=== PATIENT | female | born 1935 | race American Indian/Alaskan Native ===

== ENCOUNTER 2016-12-27 11:26 | Inpatient (IN) | payer MEDICARE ==
[2016-12-27] MEDS ORDERED: Sodium Chloride 0.9% 1,000 ML IV ONE (12:37)
--- NOTE | 2016-12-27 12:40 | C.PDOC ---
History Of Present Illness 81 yr old F had 2 near syncopal episodes, one 2 days ago and one around 9 am. Pt got up from the bed to answer a phone call, when hung up felt dizzy and collapsed to the floor, states that remembers everything including the fall. Pt denies chest pain, sob, n/v/d, abdominal pain. Pt's family report that pt is not compliant with her medications and does not take any. Denies weakness or numbness. Time Seen by Provider: 12/27/16 12:18 Chief Complaint (Nursing): Dizziness/Lightheaded History Per: Patient, Family History/Exam Limitations: clinical condition Onset/Duration Of Symptoms: Intermittent Episodes Current Symptoms Are (Timing): Still Present Activity At Onset Of Symptoms: Standing Associated Symptoms Preceding Syncopal Episode: Lightheadedness Severity: Mild Pain Scale Rating Of: 3 Recent travel outside of the [place]: No Past Medical History Reviewed: Historical Data, Nursing Documentation, Vital Signs Vital Signs: Last Vital Signs Temp 98.0 F 12/27/16 14:49 Pulse 78 12/27/16 15:03 Resp 18 12/27/16 15:03 BP 137/59 L 12/27/16 16:08 Pulse Ox 99 12/27/16 18:02 - Medical History PMH: HTN, Hypercholesterolemia, Parkinson's Disease Family History: States: Unknown Family Hx - Social History Hx Alcohol Use: Yes Hx Substance Use: No - Immunization History Hx Influenza Vaccination: Yes Hx Pneumococcal Vaccination: Yes Review Of Systems Except As Marked, All Systems Reviewed And Found Negative. Constitutional: Negative for: Fever, Chills, Sweats Cardiovascular: Positive for: Light Headedness. Negative for: Chest Pain Respiratory: Negative for: Shortness of Breath Gastrointestinal: Negative for: Nausea, Vomiting Genitourinary: Negative for: Dysuria Musculoskeletal: Positive for: Shoulder Pain (right) Neurological: Negative for: Other (loss of consciousness) Physical Exam - Physical Exam Appears: Non-toxic, No Acute Distress Skin: Normal Color, Warm, Dry Head: Atraumatic, Normacephalic Eye(s): bilateral: Normal Inspection Ear(s): Bilateral: Normal Nose: Normal Lips: Normal Appearing Neck: Normal, Normal ROM Lymphatic: Normal Exam Chest: Symmetrical Cardiovascular: Rhythm Regular Respiratory: Normal Breath Sounds, No Rales, No Rhonchi, No Wheezing Gastrointestinal/Abdominal: Normal Exam, Soft, No Tenderness Back: Normal Inspection Neurological/Psych: Oriented x3, Normal Speech, Normal Motor, Normal Sensation, Other (tremors of right arm noted) ED Course And Treatment - Laboratory Results Result Diagrams: 12/27/16 13:05 12/27/16 13:05 Lab Interpretation: Abnormal ((+)troponin, leukocytopenia) ECG: Interpreted By Me ECG Rhythm: Sinus Rhythm, ST/T Changes ECG Interpretation: Abnormal (Lest axis deviation, ST&T abnormality) Rate From EC O2 Sat by Pulse Oximetry: 99 (room air) Pulse Ox Interpretation: Normal - Radiology CXR: Interpreted by Me, Read By Radiologist CXR Interpretation: Yes: No Acute Disease Progress Note: Plan: EKG, Labs, Chest x-ray, IV fluids, Right shoulder x-ray Reassessment Condition: Unchanged Medical Decision Making Medical Decision Makin:[address] Sosa called, no answering service, called cell, mail box is full. 2:00 pm Called cell phone, mail box full, sent a text msg to call me from my cell. 2:20 pm Called cell phone, mail box full 2:30 PM ICU rehabilitation inspector Dr. Wall called, case discussed, Dr. Wall states that at this time the pt does not meet admission criteria for ICU. 2:40 pm Called cell phone, mail box full 2:[address] Stevens Called, case discussed, accepted the pt. Disposition Counseled Patient/Family Regarding: Studies Performed, Diagnosis - Disposition Disposition: HOSPITALIZED Disposition Time: 15:00 Condition: STABLE - POA Present On Arrival: Falls Or Trauma - Clinical Impression Clinical Impression: Myocardial infarct, Near syncope, Orthostatic hypotension - PA / ESTHETICIAN AND MANAGER [employer] / Resident Statement MD/DO has reviewed & agrees with the documentation as recorded. - Scribe Statement The provider has reviewed the documentation as recorded by the Scribe Olivia Stevens All medical record entries made by the Scribe were at my direction and personally dictated by me. I have reviewed the chart and agree that the record accurately reflects my personal performance of the history, physical exam, medical decision making, and the department course for this patient. I have also personally directed, reviewed, and agree with the discharge instructions and disposition. Decision To Admit - Pt Status Changed To: Hospital Disposition Of: Inpatient - Admit Certification Admit to Inpatient:: After my assessment, the patient will require hospitalization for at least two midnights. This is because of the severity of symptoms shown, intensity of services needed, and/or the medical risk in this patient being treated as an outpatient. - InPatient: Physician Admission Certification: I certify that this patient requires 2 or more midnights of care for the following reason:: see notes - . Bed Request Type: Telemetry Admitting Physician: Silvio Stevens Patient Diagnosis: Myocardial infarct, Near syncope, Orthostatic hypotension
[2016-12-27] MEDS ORDERED: Sodium Chloride 0.9% 1,000 ML ONE ×2 (13:05→16:03)
[2016-12-27 13:13] LABS: BASO % 0.6 % (0.0-2.0); EOS % 0.1 % (0.0-4.0); HEMATOCRIT 45.9 % (34.0-47.0); LYMPH # 0.8 K/uL (1.0-4.3); LYMPH % 18.5 % (20.0-40.0); MEAN CELL VOLUME 101.6 fL (81.0-99.0); MEAN CORPUSCULAR HEMOGLOBIN 33.6 pg (27.0-31.0); MEAN CORPUSCULAR HGB CONC 33.1 g/dL (33.0-37.0); MEAN PLATELET VOLUME 9.4 fL (7.2-11.7); MONO # 0.4 K/uL (0.0-0.8); MONO % 8.6 % (0.0-10.0); NRBC % 0.1 % (0.0-2.0); RED CELL DISTRIBUTION WIDTH 13.7 % (11.5-14.5); WHITE BLOOD COUNT 4.4 K/uL (4.8-10.8)
[2016-12-27 13:22] LABS: CHLORIDE 103 mmol/L (98-107); POTASSIUM 4.3 mmol/L (3.6-5.2); SODIUM 142 mmol/L (132-148)
[2016-12-27 13:24] LABS: GFR AFRICAN-AMERICAN > 60
[2016-12-27 13:25] LABS: ALKALINE PHOSPHATASE 61 U/L (38-126); ALT/SGPT 17 U/L (9-52); AST/SGOT 26 U/L (14-36); BILIRUBIN,TOTAL 1.2 mg/dL (0.2-1.3); BLOOD UREA NITROGEN 14 mg/dL (7-17); CALCIUM 9.3 mg/dl (8.6-10.4); CARBON DIOXIDE 27 mmol/L (22-30); GLUCOSE,RANDOM 108 mg/dL (65-105); TOTAL PROTEIN 7.6 g/dL (6.3-8.3)
--- NOTE | 2016-12-27 13:38 | RAD ---
PROCEDURE: Radiographs of the Right Shoulder HISTORY: PAIN Posttraumatic pain. COMPARISON: No prior. FINDINGS: BONES: No acute fracture or evidence of dislocation. JOINTS: Moderate -severe acromioclavicular and glenohumeral degenerative change. SOFT TISSUES: Normal. OTHER FINDINGS: None. IMPRESSION: No acute findings related to/accounting for the clinical presentation.
--- NOTE | 2016-12-27 13:39 | RAD ---
PROCEDURE: CHEST RADIOGRAPH, 1 VIEW. Semi erect study 12:40. HISTORY: SYNCOPE COMPARISON: None available. FINDINGS: LUNGS: Clear. PLEURA: No pneumothorax or pleural fluid seen. CARDIOVASCULAR: No radiographic findings to suggest acute or significant cardiovascular disease. OSSEOUS STRUCTURES: No acute fractures. A symmetrical degenerative changes both shoulders right greater than left. VISUALIZED UPPER ABDOMEN: Normal. OTHER FINDINGS: None. IMPRESSION: No active disease.
[2016-12-27 15:09] LABS: RBC URINE 1 /hpf (0-3); URINE BACTERIA OCC (<OCC); URINE BILIRUBIN NEGATIVE (NEGATIVE); URINE BLOOD 1+ (NEGATIVE); URINE COLOR Yellow (YELLOW); URINE GLUCOSE (UA) NORMAL (Normal); URINE KETONE NEGATIVE (NEGATIVE); URINE LEUKOCYTE ESTERASE NEG Leu/uL (Negative); URINE PROTEIN NEGATIVE (NEGATIVE); URINE UROBILINOGEN NORMAL mg/dL (0.2-1.0); WBC URINE 3 /hpf (0-5)
[2016-12-27] MEDS ORDERED: Enoxaparin 40 mg Syringe SC STA (15:13)
[2016-12-27] MEDS: Sodium Chloride 0.9% 1,000 ML IV SCH (16:08)
--- NOTE | 2016-12-27 16:37 | CT ---
PROCEDURE: CT HEAD WITHOUT CONTRAST. HISTORY: syncope COMPARISON: None available. TECHNIQUE: Axial computed tomography images were obtained through the head/brain without intravenous contrast. Coronal and sagittal reconstructed images. Radiation dose: Total exam DLP = 817.06 mGy-cm. This CT exam was performed using one or more of the following dose reduction techniques: Automated exposure control, adjustment of the mA and/or kV according to patient size, and/or use of iterative reconstruction technique. FINDINGS: HEMORRHAGE: No intracranial hemorrhage. BRAIN: No mass effect or edema. Age related senescent change VENTRICLES: Unremarkable. No hydrocephalus. CALVARIUM: Unremarkable. PARANASAL SINUSES: Unremarkable as visualized. No significant inflammatory changes. MASTOID AIR CELLS: Unremarkable as visualized. No inflammatory changes. OTHER FINDINGS: None. IMPRESSION: No acute intracranial abnormalities. No significant findings to account for the clinical presentation.
[2016-12-27 17:09] LABS: INR 1.3
--- NOTE | 2016-12-27 20:22 | CP.PCM.HP ---
History of Present Illness - History of Present Illness History of Present Illness: This 81 years ld female claims she felt very dizzy 2 days prior to admissin darwin fell on her knees. She claims she did not loss consciousness. She was able to get up immediately. Yester day she felt dizzy n and off. This morning darwin got up to answer her phone and she got dizzy again but id not loss consciousness. because of this she was brought to the RE by her daughter. In the ER the troponin level was elevated but the EKG did not show an acute pattern. Present on Admission - Present on Admission Any Indicators Present on Admission: No Review of Systems - Review of Systems Systems not reviewed;Unavailable: Acuity of Condition - Constitutional Constitutional: Frequent Falls - Cardiovascular Cardiovascular: Lightheadedness - Reproductive: Female Reproductive:Female: Post Menopausal - Musculoskeletal Musculoskeletal: Abnormal Gait - Neurological Neurological: Abnormal Gait, Abnormal Movements, Dizziness, Vertigo Past Patient History - Past Medical History & Family History Past Medical History?: Yes - Past Social History Smoking Status: Never Smoked Chewing Tobacco Use: No Cigar Use: No Alcohol: Social Drugs: Denies Home Situation {Lives}: Alone Domestic Violence: Negative - CARDIAC Hx Hypercholesterolemia: Yes Hx Hypertension: Yes - PULMONARY Hx Respiratory Disorders: No - NEUROLOGICAL Hx Neurological Disorder: Yes Hx Parkinson's Disease: Yes Hx Vertigo: Yes - HEENT Hx HEENT Problems: No - RENAL Hx Chronic Kidney Disease: No - ENDOCRINE/METABOLIC Hx Endocrine Disorders: No - HEMATOLOGICAL/ONCOLOGICAL Hx Blood Disorders: No - INTEGUMENTARY Hx Dermatological Problems: No - MUSCULOSKELETAL/RHEUMATOLOGICAL Hx Falls: Yes - GENITOURINARY/GYNECOLOGICAL Hx Genitourinary Disorders: No - PSYCHIATRIC Hx Psychophysiologic Disorder: No Hx Substance Use: No - SURGICAL HISTORY Hx Surgeries: Yes Hx Breast Biopsy: Yes (removal of breast masses as a child) Hx Cholecystectomy: Yes - ANESTHESIA Hx Anesthesia: Yes Hx Anesthesia Reactions: No Has any member of the family had a problem w/ anesthesia?: No Meds Allergies/Adverse Reactions: Allergies Allergy/AdvReac Type Severity Reaction Status Date / Time strawberry Allergy RASH Verified 12/27/16 12:11 seafood Allergy RASH Uncoded 12/27/16 11:42 Physical Exam - Constitutional Appears: Well, Non-toxic, No Acute Distress - Head Exam Head Exam: ATRAUMATIC - Eye Exam Eye Exam: Normal appearance Pupil Exam: NORMAL ACCOMODATION, PERRL - ENT Exam ENT Exam: Mucous Membranes Moist - Neck Exam Neck exam: Positive for: Full Rom, Normal Inspection - Respiratory Exam Respiratory Exam: Clear to Auscultation Bilateral, NORMAL BREATHING PATTERN - Cardiovascular Exam Cardiovascular Exam: REGULAR RHYTHM, +S1, +S2 - GI/Abdominal Exam GI & Abdominal Exam: Normal Bowel Sounds, Soft - Rectal Exam Rectal Exam: Deferred - Extremities Exam Extremities exam: Positive for: full ROM, normal inspection - Back Exam Back exam: FULL ROM, NORMAL INSPECTION - Neurological Exam Neurological exam: Alert, CN II-XII Intact, Oriented x3, Reflexes Normal - Psychiatric Exam Psychiatric exam: Normal Affect, Normal Mood - Skin Skin Exam: Dry, Intact, Normal Color, Warm Results - Vital Signs Recent Vital Signs: Last Vital Signs Temp 98.0 F 12/27/16 14:49 Pulse 78 12/27/16 15:03 Resp 18 12/27/16 15:03 BP 137/59 L 12/27/16 16:08 Pulse Ox 99 12/27/16 18:05 - Labs Result Diagrams: 12/27/16 13:05 12/27/16 13:05 Labs: Laboratory Results - last 24 hr 12/27/16 16:59 PT 14.7 H INR 1.3 APTT 32 Assessment & Plan (1) Vertigo Status: Acute (2) Elevated troponin Status: Acute (3) Hypertension Status: Chronic (4) Hyperlipidemia Status: Chronic (5) Parkinson disease, symptomatic Status: Chronic - Assessment and Plan (Free Text) Assessment: Assessment: Vertigo Elevated troponin Parkinsons Hypertension Hyperlipedemia. Plan: Plan: Continue Telemetry. IV fluids . Continue cardiac enzymes monitoring. ECHO in AM. EEG Carotid doppler. MRI nad MRA of the head.
--- NOTE | 2016-12-28 07:50 | CP.PCM.CON ---
History of Present Illness - History of Present Illness History of Present Illness: I was asked to see patient by Dr. Bowser. Patient is a 81 year old female with PMH HTN, hypercholesterolemia and Parkinson 's disease who presents with syncope. The patient describes 2 separate episodes of syncope which occurred at home. She suddenly remembers being on the floor. the patient was brought to [facility] after the second syncopal event. The patient ruled in for myocardial infarction. EKG was suggestive of anterolateral ischemia. The patient is currently chest pain free. Review of Systems - Constitutional Constitutional: absent: As Per HPI, Anorexia, Chills, Daytime Sleepiness, Excessive Sweating, Fatigue, Fever, Frequent Falls, Headache, Increased Appetite , Lethargy, Malaise, Night Sweats, Snoring, Sleep Apnea, Weight Gain, Weight Loss, Weakness, Other - EENT Eyes: absent: As Per HPI, Blind Spots, Blurred Vision, Change in Vision, Decreased Night Vision, Diplopia, Discharge, Dry Eye, Exophthalmos, Floaters, Irritation, Itchy Eyes, Loss of Peripheral Vision, Pain, Photophobia, Requires Corrective Lenses, Sees Flashes, Spots in Vision, Tunnel Vision, Other Visual Disturbances, Loss of Vision, Other Ears: absent: As Per HPI, Decreased Hearing, Ear Discharge, Ear Pain, Tinnitus, Abnormal Hearing, Disequilibrium, Dizziness, Other Nose/Mouth/Throat: absent: As Per HPI, Epistaxis, Nasal Congestion, Nasal Discharge, Nasal Obstruction, Nasal Trauma, Nose Pain, Post Nasal Drip, Sinus Pain, Sinus Pressure, Bleeding Gums, Change in Voice, Dental Pain, Dry Mouth, Dysphagia, Halitosis, Hoarsness, Lip Swelling, Mouth Lesions, Mouth Pain, Odynophagia, Sore Throat, Throat Swelling, Tongue Swelling, Facial Pain, Neck Pain, Neck Mass, Other - Cardiovascular Cardiovascular: Syncope - Respiratory Respiratory: absent: As Per HPI, Cough, Dyspnea, Hemoptysis, Dyspnea on Exertion , Wheezing, Snoring, Stridor, Pain on Inspiration, Chest Congestion, Excessive Mucous Production, Change in Mucous Color, Pain with Coughing, Other - Gastrointestinal Gastrointestinal: absent: As Per HPI, Abdominal Pain, Belching, Bloating, Change in Bowel Habits, Change in Stool Character, Coffee Ground Emesis, Constipation, Cramping, Diarrhea, Dyspepsia, Dysphagia, Early Satiety, Excessive Flatus, Fecal Incontinence, Heartburn, Hematemesis, Hematochezia, Loose Stools, Melena, Nausea, Odynophagia, Temesmus, Vomiting, Other - Genitourinary Genitourinary: absent: As Per HPI, Change in Urinary Stream, Difficulty Urinating, Dysuria, Flank Pain, Hematuria, Pyuria, Nocturia, Urinary Incontinence, Urinary Frequency, Urinary Hesitance, Urinary Urgency, Voiding Freq/Small Amts, Freq UTI, Hx Renal/Bladder Calculi, Hx /Renal Surgery, Bladder Distension, Other - Musculoskeletal Musculoskeletal: absent: As Per HPI, Abnormal Gait, Arthralgias, Atrophy, Back Pain, Deformity, Joint Swelling, Limited Range of Motion, Loss of Height, Muscle Cramps, Muscle Weakness, Myalgias, Neck Pain, Numbness, Radiating Pain into Limb, Stiffness, Tingling, Other - Integumentary Integumentary: absent: As Per HPI, Acne, Alopecia, Bleeding Lesions, Change in Hair, Change in Nails, Change in Pigmentation, Changing Lesions, Dry Skin, Erythema, Furuncle, Hirsutism, Lesions, New Lesions, Non-Healing Lesions, Photosensitivity, Pruritus, Rash, Skin Pain, Skin Ulcer, Sores, Striae, Swelling , Unusual Bruising, Wounds, Jaundice, Other - Neurological Neurological: Tremor - Psychiatric Psychiatric: absent: As Per HPI, Abnormal Sleep Pattern, Anhedonia, Anxiety, Auditory Hallucinations, Behavioral Changes, Change in Appetite, Change in Libido, Confusion, Depression, Difficulty Concentrating, Hallucinations, Homicidal Ideation, Hopelessness, Irritability, Memory Loss, Mood Swings, Panic Attacks, Paranoia, Suicidal Ideation, Visual Hallucinations, Tactile Hallucinations, Other - Endocrine Endocrine: absent: As Per HPI, Change in Body Appearance, Change in Libido, Cold Intolorance, Deepening of Voice, Excessive Sweating, Fatigue, Flushing, Heat Intolorance, Increase in Ring/Shoe/Hat Size, Palpitations, Polydipsia, Polyphagia, Polyuria, Other - Hematologic/Lymphatic Hematologic: absent: As Per HPI, Easy Bleeding, Easy Bruising, Lymphadenopathy, Other Past Patient History - Past Medical History & Family History Past Medical History?: Yes - Past Social History Smoking Status: Never Smoked - CARDIAC Hx Hypercholesterolemia: Yes Hx Hypertension: Yes - PULMONARY Hx Respiratory Disorders: No - NEUROLOGICAL Hx Neurological Disorder: Yes Hx Parkinson's Disease: Yes Hx Vertigo: Yes - HEENT Hx HEENT Problems: No - RENAL Hx Chronic Kidney Disease: No - ENDOCRINE/METABOLIC Hx Endocrine Disorders: No - HEMATOLOGICAL/ONCOLOGICAL Hx Blood Disorders: No - INTEGUMENTARY Hx Dermatological Problems: No - MUSCULOSKELETAL/RHEUMATOLOGICAL Hx Falls: Yes - GENITOURINARY/GYNECOLOGICAL Hx Genitourinary Disorders: No - PSYCHIATRIC Hx Substance Use: No - SURGICAL HISTORY Hx Surgeries: Yes Hx Breast Biopsy: Yes (removal of breast masses as a child) Hx Cholecystectomy: Yes - ANESTHESIA Hx Anesthesia: Yes Hx Anesthesia Reactions: No Has any member of the family had a problem w/ anesthesia?: No Meds Allergies/Adverse Reactions: Allergies Allergy/AdvReac Type Severity Reaction Status Date / Time strawberry Allergy RASH Verified 12/27/16 12:11 seafood Allergy RASH Uncoded 12/27/16 11:42 - Medications Medications: Current Medications Aspirin (Aspirin) 325 mg PO DAILY [facility] Enoxaparin Sodium (Lovenox) 40 mg SC DAILY [facility] Sodium Chloride (Sodium Chloride 0.9%) 1,000 mls @ 50 mls/hr IV .Q20H [facility] Last Admin: 12/27/16 16:08 Dose: 50 mls/hr Lisinopril (Zestril) 10 mg PO DAILY [facility] Pantoprazole Sodium (Protonix Ec Tab) 40 mg PO DAILY [facility] Rosuvastatin Calcium (Crestor) 5 mg PO DAILY [facility] Physical Exam - Constitutional Appears: Non-toxic - Head Exam Head Exam: NORMAL INSPECTION - Eye Exam Eye Exam: Normal appearance - ENT Exam ENT Exam: Mucous Membranes Moist - Neck Exam Neck exam: Positive for: Full Rom - Respiratory Exam Respiratory Exam: NORMAL BREATHING PATTERN - Cardiovascular Exam Cardiovascular Exam: REGULAR RHYTHM - GI/Abdominal Exam GI & Abdominal Exam: Bruit - Rectal Exam Rectal Exam: Deferred - Extremities Exam Extremities exam: Negative for: pedal edema - Back Exam Back exam: NORMAL INSPECTION - Neurological Exam Neurological exam: Alert, Oriented x3 - Psychiatric Exam Psychiatric exam: Normal Affect - Skin Skin Exam: Normal Color Results - Vital Signs Recent Vital Signs: Last Vital Signs Temp 98.0 F 12/27/16 14:49 Pulse 74 12/27/16 23:10 Resp 16 12/27/16 23:10 BP 131/69 12/27/16 22:36 Pulse Ox 100 12/27/16 23:10 - Labs Result Diagrams: 12/27/16 13:05 12/27/16 13:05 Labs: Laboratory Results - last 24 hr 12/27/16 12/27/16 16:59 21:52 PT 14.7 H INR 1.3 APTT 32 Total Creatine Kinase 43 CK-MB (Mass) < 0.22 Troponin I, Quant 0.1790 H* - EKG Data EKG Interpreted by: Myself EKG shows normal: Sinus rhythm Assessment & Plan (1) Syncope Assessment and Plan: patient's symptoms may be due to arrhythmia. recommend telemetry monitoring. Status: Acute (2) Acute non-ST segment elevation myocardial infarction Assessment and Plan: abnormal EKG. recommend cardaic catheterization. Discussed with patient. I will need to discuss with the patient's daughter. Status: Acute (3) Hyperlipidemia Assessment and Plan: statin therapy. check fasting lipid profile. Status: Chronic (4) Hypertension Assessment and Plan: blood pressure contorl. Status: Chronic
[2016-12-28] MEDS: Sodium Chloride 0.9% 1,000 ML IV SCH ×2 (09:26→11:56)
[2016-12-28] MEDS: Pantoprazole 40 mg EC Tab PO SCH (09:26)
[2016-12-28] MEDS: Enoxaparin 40 mg Syringe SC SCH (11:00)
--- NOTE | 2016-12-28 11:21 | EEG ---
DATE: 12/28/2016 EEG REPORT INTRODUCTION: This is a digitally recorded EEG monitoring using standard EEG montages. BACKGROUND RHYTHM: The EEG shows a background activity of 8-9 Hz alpha activity in parietooccipital region. The EEG activity is bilaterally symmetrical and synchronous. There is attenuation of the ba ckground activity on eye opening. No sleep recording was noted. ABNORMAL POTENTIALS: No spikes, sharp waves, or focal slowing was seen. PHOTIC STIMULATION AND HYPERVENTILATION: Photic stimulation did not reveal any abnormality. Hyperve ntilation was not performed. IMPRESSION: Normal EEG. No epileptiform activity is seen in this EEG recording. Yeni Penaloza MD cc: [id number] TT: 12/28/2016 11:20:36 Confirmation # [id number] Dictation # [id number] jn
--- NOTE | 2016-12-28 11:43 | CON ---
DATE: 12/28/2016 REASON FOR CONSULTATION: Episode of almost passing out. HISTORY OF PRESENTING ILLNESS: The patient is an 81-year-old female who has been asked for evaluatio n of episode of almost passing out. The patient apparently was feeling dizzy, got up from bed to ans wer a phone call, when hung up felt dizzy and collapsed to the floor. She said she did not completel y lose consciousness. She had no focal weakness in arms or legs. She has been having episodes of di zziness over the last few days. Dizziness is described as lightheaded feeling. It is not associated with any loss of vision or focal weakness in arms or legs. She denies any ringing in her ears. REVIEW OF SYSTEMS: Denies any chest pain, shortness of breath, abdominal pain, constipation, diarrhe a, dysuria, pyuria, cough or sputum production. PAST MEDICAL HISTORY: Includes hypertension, hypercholesterolemia and Parkinson disease. MEDICATIONS: At home include lisinopril and pravastatin. At present, patient is on Crestor, aspirin , Lovenox, Protonix and lisinopril. ALLERGIES: SEAFOOD AND STRAWBERRY. SOCIAL HISTORY: Denies smoking, use of alcohol or illicit drugs. FAMILY HISTORY: Reviewed and noncontributory to the case. PHYSICAL EXAMINATION: GENERAL: The patient is an elderly, pleasant female, lying on the bed, in no acute distress. VITAL SIGNS: Her blood pressure is 146/77, heart rate is 95 per minute, breathing at a rate of 16 pe r minute, temperature is 97.1 degrees Fahrenheit. HEENT: Head is normocephalic, atraumatic. NECK: Supple. There are no carotid bruits. LUNGS: Clear. CARDIOVASCULAR: S1, S2 audible. No murmurs. ABDOMEN: Soft and nontender, bowel sounds present. NEUROLOGIC EXAMINATION: MENTAL STATUS: The patient is awake and alert, oriented to time, place, and person. Speech is fluen t. Naming and repetition normal. Memory and cognition are intact. CRANIAL NERVES: Pupils are 3 mm bilaterally, reactive to light. Visual gonzalez are full. Extraocula r movements are intact. There is no facial asymmetry. Palate is upgoing bilaterally and tongue is m idline. MOTOR: Tone shows positive cogwheeling. There is resting tremors noted in both upper extremities an d also in right lower extremity. Power is 5/5 bilaterally in all extremities. Reflexes 1+ and symme trical with absent ankle jerk. Plantars downgoing bilaterally. CEREBELLAR: [id number] shows no dysmetria. GAIT: Deferred at the moment. LABORATORIES: Reviewed, shows WBC of 4.4, hemoglobin of 15.2, hematocrit 45.9 and platelets of 181. INR is 1.3. Sodium 142, potassium 4.3, chloride 103, carbon dioxide 27, BUN of 14, creatinine 1.0 a nd glucose of 108. Her troponin is 0.476. She had a CT scan of the head done, which shows no acute intracranial pathology. IMPRESSION: 1. Near syncope. Rule out seizure versus cardiac arrhythmia. 2. 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 RECOMMENDATIONS: 1. The patient to have MRI of the brain without contrast. 2. The patient also to have carotid Doppler study. 3. The patient to have an electroencephalogram. 4. The patient to have cardiac monitoring to look for any cardiac arrhythmias. 5. The patient will require anti-parkinsonian medication. However, will initiate it as an outpatien t and would not start any anti-parkinsonian medication at present. 6. Once stable, patient to have physical therapy for gait and balance. 7. Please continue other treatment. Thank you for the opportunity to participate in the care of this patient. Yeni Penaloza MD cc: [id number] TT: 12/28/2016 11:42:38 Confirmation # [id number] Dictation # [id number]
--- NOTE | 2016-12-28 11:53 | CP.PCM.PN ---
Subjective - Date & Time of Evaluation Date of Evaluation: 12/28/16 Time of Evaluation: 11:45 - Subjective Subjective: No chest pains.No dizziness. Trponin initaall was 0.64 the most recent is 0.47. Ecg showed ischemic cxhanges at jermaine lateral. wall. Patient to go for cardiac cath. today. Objective - Vital Signs/Intake and Output Vital Signs (last 24 hours): Temp Pulse Resp BP Pulse Ox 97.1 F L 95 H 15 146/77 100 12/28/16 08:00 12/28/16 08:00 12/28/16 08:00 12/28/16 08:00 12/28/16 08:00 Intake and Output: 12/28/16 12/28/16 06:59 18:59 Intake Total 300 Output Total 300 Balance 0 - Medications Medications: Current Medications Aspirin (Aspirin) 325 mg PO DAILY [facility] Last Admin: 12/28/16 09:25 Dose: 325 mg Enoxaparin Sodium (Lovenox) 40 mg SC DAILY [facility] Sodium Chloride (Sodium Chloride 0.9%) 1,000 mls @ 50 mls/hr IV .Q20H [facility] Last Admin: 12/28/16 09:26 Dose: 50 mls/hr Lisinopril (Zestril) 10 mg PO DAILY [facility] Last Admin: 12/28/16 09:25 Dose: 10 mg Pantoprazole Sodium (Protonix Ec Tab) 40 mg PO DAILY [facility] Last Admin: 12/28/16 09:26 Dose: 40 mg Rosuvastatin Calcium (Crestor) 5 mg PO HS [facility] - Labs Labs: PT 14.7 SECONDS (9.7-12.2) H 12/27/16 16:59 INR 1.3 12/27/16 16:59 APTT 32 SECONDS (21-34) 12/27/16 16:59 - Constitutional Appears: Well - Head Exam Head Exam: ATRAUMATIC, NORMAL INSPECTION, NORMOCEPHALIC - Eye Exam Eye Exam: PERRL Pupil Exam: NORMAL ACCOMODATION, PERRL - ENT Exam ENT Exam: Normal External Ear Exam - Neck Exam Neck Exam: Full ROM, Normal Inspection - Respiratory Exam Respiratory Exam: Clear to Ausculation Bilateral, NORMAL BREATHING PATTERN - Cardiovascular Exam Cardiovascular Exam: REGULAR RHYTHM, +S1, +S2 - GI/Abdominal Exam GI & Abdominal Exam: Soft, Normal Bowel Sounds - Rectal Exam Rectal Exam: Deferred - Back Exam Back Exam: Full ROM, NORMAL INSPECTION - Neurological Exam Neurological Exam: Alert, Awake, CN II-XII Intact, Oriented x3 - Psychiatric Exam Psychiatric exam: Normal Affect, Normal Mood - Skin Skin Exam: Dry, Intact, Normal Color, Warm Assessment and Plan (1) Vertigo Status: Acute (2) Elevated troponin Status: Acute (3) Hypertension Status: Chronic (4) Hyperlipidemia Status: Chronic (5) Parkinson disease, symptomatic Status: Chronic - Assessment and Plan (Free Text) Plan: Plan ; For cardiac cath.
--- NOTE | 2016-12-28 16:54 | CARD ---
APPROVED REPORT EXAM: Two-dimensional and M-mode echocardiogram with Doppler and color Doppler. Other Information Quality : GoodRhythm : INDICATION Acute DC Dizziness and Vertigo Syncope ELEVATED TROP. RISK FACTORS Hypertension Hyperlipidemia M-Mode DIMENSIONS RVDd1.48 (2.1-3.2cm)Left Atrium (MM)3.61 (2.5-4.0cm) IVSd0.96 (0.7-1.1cm)Aortic Root3.13 (2.2-3.7cm) LVDd5.16 (4.0-5.6cm)Aortic Cusp Exc.2.03 (1.5-2.0cm) PWd1.00 (0.7-1.1cm)FS (%) 41 % LVDs3.06 (2.0-3.8cm)LVEF (%)71 (>50%) Aortic Valve AoV Peak Dbubboxj532.2cm/Reymundo Peak GR.6mmHg Mitral Valve MV E Rwuxjpwv30.8cm/sMV A Ezpeyhqa76.9cm/sE/A ratio0.6 TDI E/Lateral E'0.0E/Medial E'0.0 Tricuspid Valve TR Peak Kvzhvqva378ku/sRAP [id number] Peak Gr.22mmHg [id number] LEFT VENTRICLE There is normal left ventricular wall thickness. The left ventricular systolic function is normal. The left ventricular ejection fraction is within the normal range. There is normal LV segmental wall motion. Normal left atrial pressure. Transmitral Doppler flow pattern is Grade I-abnormal relaxation pattern. RIGHT VENTRICLE The right ventricle is normal size. There is normal right ventricular wall thickness. The right ventricular systolic function is normal. ATRIA The left atrium size is normal. The right atrium size is normal. AORTIC VALVE The aortic valve is normal in structure. No aortic regurgitation is present. MITRAL VALVE The mitral valve is normal in structure. There is no mitral valve regurgitation noted. TRICUSPID VALVE The tricuspid valve is normal in structure. There is trace to mild tricuspid regurgitation. Right ventricular systolic pressure is estimated at less than 30 mmHg. PULMONIC VALVE The pulmonary valve is normal in structure. There is no pulmonic valvular regurgitation. GREAT VESSELS The aortic root is normal in size. The IVC is normal in size and collapses >50% with inspiration. PERICARDIAL EFFUSION There is no pericardial effusion. <Conclusion> The left ventricular systolic function is normal. There is normal LV segmental wall motion. Normal left atrial pressure. Transmitral Doppler flow pattern is Grade I-abnormal relaxation pattern. The right ventricular systolic function is normal. No valvular abnormality noted. There is no pericardial effusion.
--- NOTE | 2016-12-28 17:23 | CARD ---
APPROVED REPORT EKG Measurement Heart [id number] <Conclusion> Normal sinus rhythm Left axis deviation Minimal voltage criteria for LVH, may be normal variant Nonspecific ST & T wave abnormality. Abnormal ECG PLEASE REPEAT. PROMINENT BASELINE ARTIFACT
--- NOTE | 2016-12-28 18:38 | CP.PCM.PN ---
Subjective - Date & Time of Evaluation Date of Evaluation: 12/28/16 Time of Evaluation: 18:35 - Subjective Subjective: cardiac cath performed. no angiographic evidence of CAD. Normal LV function. Objective - Vital Signs/Intake and Output Vital Signs (last 24 hours): Temp Pulse Resp BP Pulse Ox 97.1 F L 99 H 13 127/72 79 L 12/28/16 16:17 12/28/16 16:17 12/28/16 16:10 12/28/16 14:04 12/28/16 16:10 Intake and Output: 12/28/16 12/28/16 06:59 18:59 Intake Total 300 1100 Output Total 300 600 Balance 0 500 - Medications Medications: Current Medications Aspirin (Aspirin) 325 mg PO DAILY [facility] Last Admin: 12/28/16 09:25 Dose: 325 mg Enoxaparin Sodium (Lovenox) 40 mg SC DAILY [facility] Last Admin: 12/28/16 11:00 Dose: Not Given Sodium Chloride (Sodium Chloride 0.9%) 1,000 mls @ 50 mls/hr IV .Q20H [facility] Last Admin: 12/28/16 11:56 Dose: Not Given Lisinopril (Zestril) 10 mg PO DAILY [facility] Last Admin: 12/28/16 09:25 Dose: 10 mg Pantoprazole Sodium (Protonix Ec Tab) 40 mg PO DAILY [facility] Last Admin: 12/28/16 09:26 Dose: 40 mg Rosuvastatin Calcium (Crestor) 5 mg PO HS [facility] - Labs Labs: PT 14.7 SECONDS (9.7-12.2) H 12/27/16 16:59 INR 1.3 12/27/16 16:59 APTT 32 SECONDS (21-34) 12/27/16 16:59 Assessment and Plan (1) Syncope Status: Acute (2) Acute non-ST segment elevation myocardial infarction Status: Acute (3) Hyperlipidemia Status: Chronic (4) Hypertension Status: Chronic
[2016-12-28] MEDS ORDERED: Sodium Chloride 0.9% 500 ML IV SCH (18:42)
--- NOTE | 2016-12-28 19:33 | CARDCATH ---
PROCEDURE DATE: 12/28/2016 PROCEDURE PERFORMED: Left heart catheterization, coronary angiography, left ventriculography. INDICATIONS: Non-ST segment elevation myocardial infarction. COMPLICATIONS: None. REFERRING PHYSICIAN: Dr. Jamia Bowser. HISTORY OF PRESENT ILLNESS: The patient is an 81-year-old female with Parkinson's disease, who has had 2 syncopal events. She ruled in for myocardial infarction. EKG was suggestive of anterolateral ischemia. She is referred for cardiac catheterization. Informed consent was obtained from the daughter. Coronary angiography and left ventriculography were then performed. An Angio-Seal device was deployed successfully to achieve hemostasis without complications. FINDINGS: HEMODYNAMICS: There is no gradient across the aortic valve and left ventricular end diastolic pressure is normal. CORONARIES: LEFT MAIN: Normal. LEFT ANTERIOR DESCENDING ARTERY: Normal. LEFT CIRCUMFLEX ARTERY: Normal. RIGHT CORONARY ARTERY: Arises from the right sinus of Valsalva. This is a right dominant circulation. Normal. LEFT VENTRICLE: Normal left ventricular systolic function. Left ventricular ejection fraction is 55%. No mitral regurgitation, no aortic stenosis. CONCLUSIONS: 1. No angiographic evidence of significant coronary artery disease: 2. Normal left ventricular function. PLAN: Medical therapy. Cris Fall MD cc: [id number] TT: 12/28/2016 19:32:37 mn MTDD
[2016-12-29] MEDS: Sodium Chloride 0.9% 1,000 ML IV SCH (07:43)
--- NOTE | 2016-12-29 09:34 | PN ---
DATE: 12/29/2016 The patient is lying on the bed, in no acute distress. No headache and no dizziness this morning. PHYSICAL EXAMINATION: VITAL SIGNS: Her blood pressure 152/73, heart rate is 103 per minute, breathing at a rate of 16 per minute, temperature is 97.6 degrees Fahrenheit. HEENT: Head is normocephalic, atraumatic. NECK: Supple. There are no carotid bruits. LUNGS: Clear. CARDIOVASCULAR: S1, S2 audible with no murmurs. ABDOMEN: Soft and nontender, bowel sounds are present. NEUROLOGIC EXAMINATION: MENTAL STATUS: The patient is awake, alert, oriented to place, person, time. Speech is fluent. Nam ing and repetition normal. Memory and cognition appears intact. CRANIAL NERVES: Pupils are 3 mm bilaterally, reactive to light. Visual gonzalez are full. Extraocula r movements are intact. There is no facial asymmetry. Palate is upgoing bilaterally and tongue is m idline. MOTOR: Shows positive cogwheeling. There is resting tremors noted in both upper extremities and als o in the lower extremities. Power is 5/5 bilaterally in all extremities. Reflexes 1+ and symmetrica l. Absent ankle jerk. Plantars downgoing bilaterally. GAIT: Deferred at the moment. IMPRESSION: 1. Status post near syncope. 2. Dizziness, which appears to be labyrinthine dysfunction. 3. Parkinson disease. RECOMMENDATIONS: 1. The patient had an electroencephalogram which is normal. 2. The patient did not have her MRI of the brain as yet. 3. The patient had a cardiac catheterization, which shows no evidence of coronary artery disease. 4. The patient to be started on physical therapy. 5. I will also start patient on Sinemet 25/100 mg half tablet 3 times a day. 6. Please continue other treatment and supportive care. Thank you for the opportunity to participate in the care of this patient. Yeni Penaloza MD cc: [id number] TT: 12/29/2016 09:34:14 Confirmation # [id number] Dictation # [id number]
[2016-12-29] MEDS: Enoxaparin 40 mg Syringe SC SCH (09:39)
[2016-12-29] MEDS: Pantoprazole 40 mg EC Tab PO SCH (09:40)
--- NOTE | 2016-12-29 10:54 | CP.PCM.PN ---
Subjective - Date & Time of Evaluation Date of Evaluation: 12/29/16 Time of Evaluation: 10:50 - Subjective Subjective: Patient in cahir. Comfortable. No dizziness so far, no headaches. Started on dopamine. Cardiac cath absolutely normal, with normal ejection fraction. EEG done was normal To have MRI, MRA, and MRI of the IAC this AM. Objective - Vital Signs/Intake and Output Vital Signs (last 24 hours): Temp Pulse Resp BP Pulse Ox 97.6 F 103 H 22 152/73 H 96 12/29/16 08:00 12/29/16 08:00 12/29/16 08:00 12/29/16 08:00 12/29/16 08:00 Intake and Output: 12/29/16 12/29/16 06:59 18:59 Intake Total 1530 100 Output Total 800 200 Balance 730 -100 - Medications Medications: Current Medications Aspirin (Aspirin) 325 mg PO DAILY [facility] Last Admin: 12/29/16 09:39 Dose: 325 mg Carbidopa/Levodopa (Sinemet) 1 tab PO TID [facility] Enoxaparin Sodium (Lovenox) 40 mg SC DAILY [facility] Last Admin: 12/29/16 09:39 Dose: 40 mg Sodium Chloride (Sodium Chloride 0.9%) 1,000 mls @ 50 mls/hr IV .Q20H [facility] Last Admin: 12/29/16 07:43 Dose: 50 mls/hr Lisinopril (Zestril) 10 mg PO DAILY [facility] Last Admin: 12/29/16 09:39 Dose: 10 mg Pantoprazole Sodium (Protonix Ec Tab) 40 mg PO DAILY [facility] Last Admin: 12/29/16 09:40 Dose: 40 mg Rosuvastatin Calcium (Crestor) 5 mg PO HS [facility] Last Admin: 12/28/16 21:09 Dose: 5 mg - Labs Labs: PT 14.7 SECONDS (9.7-12.2) H 12/27/16 16:59 INR 1.3 12/27/16 16:59 APTT 32 SECONDS (21-34) 12/27/16 16:59 - Constitutional Appears: Well, No Acute Distress - Head Exam Head Exam: ATRAUMATIC, NORMAL INSPECTION, NORMOCEPHALIC - Eye Exam Eye Exam: Normal appearance Pupil Exam: NORMAL ACCOMODATION, PERRL - ENT Exam ENT Exam: Normal External Ear Exam - Neck Exam Neck Exam: Full ROM - Respiratory Exam Respiratory Exam: Clear to Ausculation Bilateral, NORMAL BREATHING PATTERN - Cardiovascular Exam Cardiovascular Exam: REGULAR RHYTHM, +S1, +S2 - GI/Abdominal Exam GI & Abdominal Exam: Soft, Normal Bowel Sounds - Rectal Exam Rectal Exam: Deferred - Neurological Exam Neurological Exam: Alert, Awake, CN II-XII Intact, Oriented x3, Reflexes Normal Additional comments: Bilateral tremors of the upper and lower extremities. Upper > the the lower. - Psychiatric Exam Psychiatric exam: Normal Affect, Normal Mood - Skin Skin Exam: Dry, Intact, Normal Color, Warm Assessment and Plan (1) Vertigo Status: Acute (2) Elevated troponin Status: Acute (3) Hypertension Status: Chronic (4) Hyperlipidemia Status: Chronic (5) Parkinson disease, symptomatic Status: Chronic - Assessment and Plan (Free Text) Plan: PLan: MRI,MRA of the head and MRI of the IAC today. Will continue Lisinopril and crestor and ASA.
[2016-12-29] MEDS: CARBIDOPA PO SCH ×3 (10:58→17:44)
[2016-12-29] MEDS: LEVODOPA PO SCH ×3 (10:58→17:44)
[2016-12-29] MEDS ORDERED: Gadodiamide 287 MG/ML VIAL (15ML) IV ONE (13:24)
--- NOTE | 2016-12-29 15:48 | MRI ---
PROCEDURE: MRI BRAIN WITH AND WITHOUT CONTRAST HISTORY: vertigo COMPARISON: None. TECHNIQUE: Multiplanar, multisequence MR images of the brain were obtained with and without intravenous contrast enhancement. FINDINGS: HEMORRHAGE: None DWI: No evidence of an acute or early subacute infarction. BRAIN PARENCHYMA: No mass,mass effect or edema. No atrophy or chronic microvascular ischemic changes. ENHANCEMENT: No abnormal intracranial enhancement. VENTRICLES: Unremarkable. No hydrocephalus. CRANIUM: Unremarkable. ORBITS: Grossly unremarkable. PARANASAL SINUSES/MASTOIDS: Partial opacification of the right mastoid is noted. VASCULAR SYSTEM: Skull base flow voids intact. OTHER FINDINGS: Dilated sella turcica and partial empty sella is noted.. IMPRESSION: No evidence of acute infarct or acute intracranial pathology. Partial opacification of the right mastoid. Dilated sella turcica and partial empty sella.
--- NOTE | 2016-12-29 17:39 | MRI ---
PROCEDURE: Magnetic Resonance Angiography Brain HISTORY: vertigo COMPARISON: None available. TECHNIQUE: 3D time of flight MR angiography of the intracranial arteries was performed. Rotating maximum intensity projection images were generated. FINDINGS: INTERNAL CEREBRAL ARTERIES: Unremarkable. The skull base, petrous, cavernous and supraclinoid segments are bilaterally widely patient. ANTERIOR CEREBRAL ARTERIES: Unremarkable. A1 and A2 segments are widely patent. Smaller distal branches unremarkable, as visualized. MIDDLE CEREBRAL ARTERIES: Unremarkable. M1 and M2 segments are widely patent. Perisylvian branches grossly symmetric. POSTERIOR CIRCULATION: Basilar Artery: Small in size with segmental severe stenosis at the mid to distal portion Distal Vertebral Arteries: The distal right vertebral artery is smaller than the left. Posterior Cerebral Arteries: Small in size Posterior Inferior Cerebellar Arteries: Small in size ANEURYSM/ VASCULAR MALFORMATIONS: None. OTHER FINDINGS: None. 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 Prominent size posterior communicated artery.
[2016-12-30] MEDS: Sodium Chloride 0.9% 1,000 ML IV SCH ×2 (03:45→06:22)
[2016-12-30] MEDS: Enoxaparin 40 mg Syringe SC SCH (09:20)
[2016-12-30] MEDS: LEVODOPA PO SCH ×3 (09:20→17:09)
[2016-12-30] MEDS: CARBIDOPA PO SCH ×3 (09:20→17:09)
[2016-12-30] MEDS: Pantoprazole 40 mg EC Tab PO SCH (09:20)
--- NOTE | 2016-12-30 10:51 | CP.PCM.PN ---
Subjective - Date & Time of Evaluation Date of Evaluation: 12/30/16 Time of Evaluation: 10:45 - Subjective Subjective: Zoe felt very dizzy this AM when she got out of bed. Her BP apparently dipped to the 90's. hwereas her BP was in he 150's. MRI of the brain was negative for infarcts of hemmorrhage. 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 The orthostatic hypotension could be the reason for her severe dizziness when she gots up from bed. and/ or sitting position. Will discuss with DR. Penaloza. Objective - Vital Signs/Intake and Output Vital Signs (last 24 hours): Temp Pulse Resp BP Pulse Ox 97.8 F 74 18 150/86 98 12/30/16 08:00 12/30/16 08:08 12/30/16 08:00 12/30/16 08:00 12/30/16 08:00 Intake and Output: 12/30/16 12/30/16 06:59 18:59 Intake Total 970 Output Total 900 Balance 70 - Medications Medications: Current Medications Aspirin (Aspirin) 325 mg PO DAILY [facility] Last Admin: 12/30/16 09:19 Dose: 325 mg Carbidopa/Levodopa (Sinemet) 1 tab PO TID [facility] Last Admin: 12/30/16 09:20 Dose: 1 tab Enoxaparin Sodium (Lovenox) 40 mg SC DAILY [facility] Last Admin: 12/30/16 09:20 Dose: 40 mg Sodium Chloride (Sodium Chloride 0.9%) 1,000 mls @ 50 mls/hr IV .Q20H [facility] Last Admin: 12/30/16 06:22 Dose: 50 mls/hr Lisinopril (Zestril) 10 mg PO DAILY [facility] Last Admin: 12/30/16 09:20 Dose: 10 mg Pantoprazole Sodium (Protonix Ec Tab) 40 mg PO DAILY [facility] Last Admin: 12/30/16 09:20 Dose: 40 mg Rosuvastatin Calcium (Crestor) 5 mg PO HS [facility] Last Admin: 12/29/16 22:15 Dose: 5 mg - Labs Labs: PT 14.7 SECONDS (9.7-12.2) H 12/27/16 16:59 INR 1.3 12/27/16 16:59 APTT 32 SECONDS (21-34) 12/27/16 16:59 - Constitutional Appears: Well, Non-toxic, No Acute Distress - Head Exam Head Exam: ATRAUMATIC, NORMAL INSPECTION, NORMOCEPHALIC - Eye Exam Eye Exam: Normal appearance Pupil Exam: NORMAL ACCOMODATION, PERRL - ENT Exam ENT Exam: Mucous Membranes Moist - Neck Exam Neck Exam: Full ROM - Respiratory Exam Respiratory Exam: Clear to Ausculation Bilateral, NORMAL BREATHING PATTERN - Cardiovascular Exam Cardiovascular Exam: REGULAR RHYTHM, +S1, +S2 - GI/Abdominal Exam GI & Abdominal Exam: Soft, Normal Bowel Sounds - Rectal Exam Rectal Exam: Deferred - Extremities Exam Extremities Exam: Full ROM Additional comments: Involuntary tremors of both upper and lower extremities > on the upper extremities. - Back Exam Back Exam: Full ROM, NORMAL INSPECTION - Neurological Exam Neurological Exam: Alert, Awake, CN II-XII Intact, Oriented x3, Reflexes Normal Neuro motor strength exam: Left Upper Extremity: 4, Right Upper Extremity: 4, Left Lower Extremity: 4, Right Lower Extremity: 4 - Psychiatric Exam Psychiatric exam: Normal Affect, Normal Mood - Skin Skin Exam: Dry, Normal Color, Warm Assessment and Plan (1) Vertigo Status: Acute (2) Elevated troponin Status: Acute (3) Hypertension Status: Chronic (4) Hyperlipidemia Status: Chronic (5) Parkinson disease, symptomatic Status: Chronic (6) Orthostatic hypotension due to Parkinson's disease Status: Acute - Assessment and Plan (Free Text) Plan: Plan: Will monitor BP for today. Will continue Simenet. Will hold off Lisinopril.
--- NOTE | 2016-12-30 11:39 | MRI ---
PROCEDURE: MRI of the internal auditory canals dated 12/29/2016 HISTORY: syncope COMPARISON: Correlation made with concurrent pre and post-contrast MRI of the brain TECHNIQUE: Multiplanar, multisequence MR i brain mages of the brain and posterior fossa were obtained with and without contrast. High-resolution posterior fossa and images through the cerebellopontine angle and internal auditory canals included: Axial 3-D fiesta, axial T1 pre-and postcontrast enhanced and coronal T1 pre-and postcontrast enhanced. FINDINGS: IAC/CP ANGLES: INTERNAL AUDITORY CANALS: Unremarkable. CEREBELLOPONTINE ANGLES: Incidental note is made of what appears to represent the right-sided posterior inferior cerebellar artery (PICA) crossing between the right 7th and 8th nerve complex ; unknown whether this entity causes any symptomatology INNER EAR STRUCTURES: Unremarkable. Normally formed cochlea and semicircular canals. No signal abnormality or abnormal enhancement in the membranous labyrinth of the cochlea, vestibule or the semicircular canals. BRAINSTEM: Unremarkable. MASTOIDS: Clear OTHER: The sella turcica appears enlarged/expanded, contains CSF and flattened appearing pituitary gland along the floor of the sella turcica. Findings consistent with partially empty sella however concomitant small arachnoid cyst may be present as well. BRAIN (LIMITED): Mild chronic periventricular white matter ischemic changes on are less well seen on this study compared with concurrent dedicated pre and post contrast MRI of the brain. Please refer to that study for additional findings and details. 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 The. Enlarged/expanded appearing sella turcica containing CSF and flattened appearance of the pituitary gland along the floor of the sella turcica. Findings consistent with partially empty sella however concomitant small arachnoid cyst may be present as well Mild chronic periventricular white matter ischemic changes less well seen on this exam as compared with concurrent dedicated pre and post-contrast MRI of the brain
[2016-12-30 12:05] LABS: CHLORIDE 104 mmol/L (98-107); POTASSIUM 4.6 mmol/L (3.6-5.2); SODIUM 135 mmol/L (132-148)
[2016-12-30 12:08] LABS: BLOOD UREA NITROGEN 14 mg/dL (7-17); CARBON DIOXIDE 24 mmol/L (22-30); GFR AFRICAN-AMERICAN > 60; GLUCOSE,RANDOM 86 mg/dL (65-105)
[2016-12-30 12:09] LABS: CALCIUM 8.5 mg/dl (8.6-10.4)
--- NOTE | 2016-12-30 13:30 | PN ---
DATE: 12/30/2016 SUBJECTIVE: The patient is sitting on the recliner in no acute distress. Denies having any headache , just complains of mild dizziness which is described as lightheaded feeling. PHYSICAL EXAMINATION: VITAL SIGNS: Her blood pressure is 96/60, heart rate is 84 per minute, breathing at a rate of 16 per minute. She is afebrile. HEENT: Normocephalic, atraumatic. NECK: Supple. There are no carotid bruits. LUNGS: Clear. CARDIOVASCULAR: S1, S2 audible. No murmurs. ABDOMEN: Soft and nontender with bowel sounds present. NEUROLOGIC EXAMINATION: MENTAL STATUS: The patient is awake and alert, oriented to time, place, and person. Speech is fluen t. Naming and repetition normal. Memory and cognition appear intact. CRANIAL NERVE: Pupils are 3 mm, bilaterally reactive to light. Visual gonzalez are full. Extraocular movements are intact. There is no facial asymmetry. Palate is upgoing bilaterally and tongue is mi dline. MOTOR: Tone shows positive cogwheeling in the upper extremities. Positive resting tremors noted in all 4 extremities. Power is 4/5 all over. Reflexes 1+ and symmetrical. Plantars downgoing bilatera lly. LABORATORY DATA: Labs reviewed. MRI of the brain shows no evidence of acute infarct or acute intrac ranial pathology. Partial opacification of the right mastoid. MRA of the brain shows small size bas ilar artery with segment of severe stenosis at the mid to distal portion. The MRI of the internal au ditory canal shows apparent right-sided posterior inferior cerebellar artery crossing between the rig ht seventh and eighth nerve complex. Enlarged, expanded-appearing sella turcica containing CSF with flattened appearance of the pituitary gland along the floor of the sella turcica. Findings are consi stent with an empty sella. Mild chronic periventricular white matter ischemic changes. IMPRESSION: 1. Status post near syncope. 2. Dizziness which appears to be secondary to labyrinthine dysfunction with opacification of the mas toid. 3. Parkinson's disease. RECOMMENDATIONS: 1. The patient was started on half a tablet of Sinemet 25/100 mg 3 times a day. She denies having a ny hallucinations. 2. The patient to have physical therapy as she tolerates. 3. As the patient tolerates the Sinemet, we will consider slowly increasing the dose and perhaps add ing another dopamine agonist. 4. Please continue supportive care and other treatment. Thank you for the opportunity to participate in the care of this patient. Yeni Penaloza MD cc: [id number] TT: 12/30/2016 13:29:55 Confirmation # [id number] Dictation # [id number]
--- NOTE | 2016-12-31 08:19 | VASCLAB ---
PROCEDURE: HISTORY: Dizziness COMPARISON: None available. TECHNIQUE: Grayscale and duplex Doppler evaluation of the cervical carotid and vertebral arteries were performed. The common carotid, carotid bifurcations and cervical Internal Carotid Artery (ICA) and proximal External Carotid Artery (ECA) were evaluated. The vertebral arteries were evaluated for gross patency and flow direction. Report prepared by Michael Mendez, BS, RVT FINDINGS: RIGHT CAROTID ARTERIES: 1. Common Carotid Artery: No significant focal plaque formation of the right common carotid artery. Maximum Peak Systolic velocity: 58 cm/sec: End-diastolic velocity 10 cm/sec. 2. Carotid Bifurcation: Calcific plaque formation. Maximum Peak Systolic velocity: 66 cm/sec: End-diastolic velocity 18 cm/sec. 3. Internal Carotid Artery: Irregular plaque formation of the right proximal ICA which does not result in hemodynamically significant stenosis. Plaque description: Irregular calcific. Tortuous course. 3.1. Proximal Segment: Peak systolic velocity 66 cm/sec: End-diastolic velocity 18 cm/sec - % stenosis 0-15% 3.2. Middle Segment: Peak systolic velocity 54 cm/sec: End-diastolic velocity 14 cm/sec - % stenosis 0-15% 3.3. Distal Segment: Peak systolic velocity 75 cm/sec: End-diastolic velocity 21 cm/sec - % stenosis 0-15% 4. External Carotid Artery: No significant focal plaque formation. Peak systolic velocity cm/sec 5. ICA/CCA Ratio: 1.3 LEFT CAROTID ARTERIES: 1. Common Carotid Artery: No significant focal plaque formation of the left common carotid artery. Maximum Peak Systolic velocity: 74 cm/sec: End-diastolic velocity 14 cm/sec. 2. Carotid Bifurcation: Calcific plaque formation. Maximum Peak Systolic velocity: 62 cm/sec: End-diastolic velocity 12 cm/sec. 3. Internal Carotid Artery: Moderate plaque formation of the left proximal ICA which does not result in hemodynamically significant stenosis. Plaque description: Ulcerated calcific. Tortuous course. 3.1. Proximal Segment: Peak systolic velocity 54 cm/sec: End-diastolic velocity 17 cm/sec - % stenosis 0-15% 3.2. Middle Segment: Peak systolic velocity 96 cm/sec: End-diastolic velocity 32 cm/sec - % stenosis 0-15% 3.3. Distal Segment: Peak systolic velocity 91 cm/sec: End-diastolic velocity 27 cm/sec - % stenosis 0-15% 4. External Carotid Artery: No significant focal plaque formation. Peak systolic velocity 53 cm/sec 5. ICA/CCA Ratio: 1.3 VERTEBRAL ARTERIES: 1. Right Vertebral Artery: The right vertebral artery flow direction is antegrade. 2. Left Vertebral Artery: The left vertebral artery flow direction is antegrade. OTHER FINDINGS: 1. Right Brachial Blood pressure: 106 mmHg. 2. Left Brachial Blood pressure: Not optimally obtained. IMPRESSION: RIGHT: Duplex scan does not suggest hemodynamically significant stenosis of the right extracranial carotid arteries. LEFT: Duplex scan does not suggest hemodynamically significant stenosis of the left extracranial carotid arteries.
--- NOTE | 2016-12-31 09:41 | PN ---
DATE: 12/31/2016 SUBJECTIVE: The patient is lying on the bed, in no acute distress. Denies having any headache. She said she is not dizzy, but she is not sure since she is not out of bed as yet. OBJECTIVE: VITAL SIGNS: Her blood pressure is 163/82, heart rate is 85 per minute, breathing at a rate of 16 pe r minute, temperature is 98.3 degrees Fahrenheit. HEENT: Normocephalic, atraumatic. NECK: Supple. There are no carotid bruits. LUNGS: Clear. CARDIOVASCULAR: S1, S2 audible. No murmurs. ABDOMEN: Soft, nontender. Bowel sounds present. NEUROLOGIC EXAMINATION: MENTAL STATUS: The patient is awake; alert; oriented to time, place, person. Speech is fluent. Nam ing and repetition normal. Memory and cognition are intact. CRANIAL NERVES: Pupils are 3 mm bilaterally reactive to light. Visual gonzalez are full. Extraocular movements are intact. There is no facial asymmetry. She is awake, moving all 4 extremities. MOTOR: Tone shows positive cogwheeling. Positive resting tremors in both upper extremities. REFLEX ES: 1+ and symmetrical. Plantars downgoing bilaterally. IMPRESSION: 1. Status post near-syncope. 2. Parkinson disease. RECOMMENDATIONS: 1. The patient to be continued on half a tablet of Sinemet 25/100 mg 3 times a day. She is toleratin g it well; however, she is a little lightheaded. Her dose needs to be increased to a full tablet 3 t imes a day in the next week to 10 days as she tolerates the medication. 2. The patient to have physical therapy for gait imbalance. 3. The patient had no further episode of feeling like passing out. 4. Please continue supportive care and other treatment. 5. The patient is a good rehab candidate. Thank you for the opportunity to participate in the care of this patient. Yeni Penaloza MD cc: [id number] TT: 12/31/2016 09:40:16 Confirmation # [id number] Dictation # [id number]
[2016-12-31] MEDS: Enoxaparin 40 mg Syringe SC SCH (10:39)
[2016-12-31] MEDS: Pantoprazole 40 mg EC Tab PO SCH (10:39)
--- NOTE | 2016-12-31 10:56 | CP.PCM.PN ---
Subjective - Date & Time of Evaluation Date of Evaluation: 12/31/16 Time of Evaluation: 10:50 - Subjective Subjective: No diziness today. Discussed wih DR. Penaloza regarding the hypotensive episode when patient stands up. Will start patient on Flourinef and Sinemet 10/100 today. 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 Objective - Vital Signs/Intake and Output Vital Signs (last 24 hours): Temp Pulse Resp BP Pulse Ox 98.4 F 88 20 121/79 97 12/31/16 09:20 12/31/16 09:20 12/31/16 09:20 12/31/16 09:20 12/31/16 09:20 Intake and Output: 12/31/16 12/31/16 06:59 18:59 Intake Total 150 Output Total 600 Balance -450 - Medications Medications: Current Medications Aspirin (Aspirin) 325 mg PO DAILY [facility] Last Admin: 12/31/16 10:39 Dose: 325 mg Carbidopa/Levodopa (Sinemet 10/100) 1 tab PO TID [facility] Enoxaparin Sodium (Lovenox) 40 mg SC DAILY [facility] Last Admin: 12/31/16 10:39 Dose: 40 mg Fludrocortisone Acetate (Florinef) 0.1 mg PO ACB [facility] Pantoprazole Sodium (Protonix Ec Tab) 40 mg PO DAILY [facility] Last Admin: 12/31/16 10:39 Dose: 40 mg Rosuvastatin Calcium (Crestor) 5 mg PO HS [facility] Last Admin: 12/30/16 21:18 Dose: 5 mg - Labs Labs: 12/30/16 11:15 PT 14.7 SECONDS (9.7-12.2) H 12/27/16 16:59 INR 1.3 12/27/16 16:59 APTT 32 SECONDS (21-34) 12/27/16 16:59 - Constitutional Appears: Well, No Acute Distress - Head Exam Head Exam: ATRAUMATIC, NORMAL INSPECTION, NORMOCEPHALIC - Eye Exam Eye Exam: Normal appearance Pupil Exam: NORMAL ACCOMODATION, PERRL - ENT Exam ENT Exam: Mucous Membranes Moist - Neck Exam Neck Exam: Full ROM - Respiratory Exam Respiratory Exam: Clear to Ausculation Bilateral, NORMAL BREATHING PATTERN - Cardiovascular Exam Cardiovascular Exam: REGULAR RHYTHM, +S1, +S2 - GI/Abdominal Exam GI & Abdominal Exam: Soft, Normal Bowel Sounds - Rectal Exam Rectal Exam: Deferred - Extremities Exam Extremities Exam: Full ROM Additional comments: Tremors at both upper and lower extremities upper > lower. - Back Exam Back Exam: NORMAL INSPECTION - Neurological Exam Neurological Exam: Alert, Awake, CN II-XII Intact, Oriented x3 - Psychiatric Exam Psychiatric exam: Normal Affect, Normal Mood - Skin Skin Exam: Dry, Intact, Normal Color, Warm Assessment and Plan (1) Vertigo Status: Acute (2) Elevated troponin Status: Acute (3) Hypertension Status: Chronic (4) Hyperlipidemia Status: Chronic (5) Parkinson disease, symptomatic Status: Chronic (6) Orthostatic hypotension due to Parkinson's disease Status: Acute (7) Basilar artery stenosis Status: Acute - Assessment and Plan (Free Text) Plan: Plan: Sinemet 10/100 TID Flourinef 0.1 mgm daily Subacute rehab.
[2017-01-01] MEDS: Enoxaparin 40 mg Syringe SC SCH (09:58)
[2017-01-01] MEDS: Pantoprazole 40 mg EC Tab PO SCH (09:59)
--- NOTE | 2017-01-01 10:38 | CP.PCM.PN ---
Subjective - Date & Time of Evaluation Date of Evaluation: 01/01/17 Time of Evaluation: 10:25 - Subjective Subjective: Slight wozziness on standing this AM. BP was 157 systolic. Started on flourinef yesterday Will restart on lisinopril 5 mgm today. If no diziness today will discharge to subacute in AM. Objective - Vital Signs/Intake and Output Vital Signs (last 24 hours): Temp Pulse Resp BP Pulse Ox 98.3 F 68 20 157/85 H 99 01/01/17 07:00 01/01/17 07:00 01/01/17 07:00 01/01/17 07:00 01/01/17 07:00 - Medications Medications: Current Medications Aspirin (Aspirin) 325 mg PO DAILY [facility] Last Admin: 01/01/17 09:59 Dose: 325 mg Carbidopa/Levodopa (Sinemet ) 1 tab PO TID [facility] Last Admin: 01/01/17 09:59 Dose: 1 tab Enoxaparin Sodium (Lovenox) 40 mg SC DAILY [facility] Last Admin: 01/01/17 09:58 Dose: 40 mg Fludrocortisone Acetate (Florinef) 0.1 mg PO ACB [facility] Last Admin: 01/01/17 07:31 Dose: 0.1 mg Pantoprazole Sodium (Protonix Ec Tab) 40 mg PO DAILY [facility] Last Admin: 01/01/17 09:59 Dose: 40 mg Rosuvastatin Calcium (Crestor) 5 mg PO HS [facility] Last Admin: 12/31/16 21:56 Dose: 5 mg - Labs Labs: 12/30/16 11:15 PT 14.7 SECONDS (9.7-12.2) H 12/27/16 16:59 INR 1.3 12/27/16 16:59 APTT 32 SECONDS (21-34) 12/27/16 16:59 - Constitutional Appears: Well, No Acute Distress - Head Exam Head Exam: ATRAUMATIC, NORMAL INSPECTION, NORMOCEPHALIC - Eye Exam Eye Exam: EOMI, Normal appearance, PERRL Pupil Exam: NORMAL ACCOMODATION, PERRL - Neck Exam Neck Exam: Full ROM - Respiratory Exam Respiratory Exam: Clear to Ausculation Bilateral, NORMAL BREATHING PATTERN - Cardiovascular Exam Cardiovascular Exam: REGULAR RHYTHM, +S1, +S2 - GI/Abdominal Exam GI & Abdominal Exam: Soft, Normal Bowel Sounds - Rectal Exam Rectal Exam: Deferred - Extremities Exam Extremities Exam: Full ROM, Normal Inspection - Back Exam Back Exam: Full ROM, NORMAL INSPECTION - Neurological Exam Neurological Exam: Alert, Altered, Awake, CN II-XII Intact, Oriented x3 - Psychiatric Exam Psychiatric exam: Normal Affect, Normal Mood - Skin Skin Exam: Dry, Intact, Normal Color, Warm Assessment and Plan (1) Vertigo Status: Acute (2) Elevated troponin Status: Acute (3) Hypertension Status: Chronic (4) Hyperlipidemia Status: Chronic (5) Parkinson disease, symptomatic Status: Chronic (6) Orthostatic hypotension due to Parkinson's disease Status: Acute (7) Basilar artery stenosis Status: Acute - Assessment and Plan (Free Text) Plan: Plan: Continue telemetry Continue Fluorinef. Start on low dose Lisinopril.
--- NOTE | 2017-01-02 07:23 | CP.PCM.PN ---
Subjective - Date & Time of Evaluation Date of Evaluation: 01/02/17 Time of Evaluation: 07:15 - Subjective Subjective: Patient is comfortable. No dizziness when she stands up. Starteed on flourinef and Lisinopril. Objective - Vital Signs/Intake and Output Vital Signs (last 24 hours): Temp Pulse Resp BP Pulse Ox 98.1 F 61 20 136/81 98 01/01/17 23:35 01/01/17 23:35 01/01/17 23:35 01/01/17 23:35 01/01/17 23:35 Intake and Output: 01/02/17 01/02/17 06:59 18:59 Intake Total 100 Balance 100 - Medications Medications: Current Medications Aspirin (Aspirin) 325 mg PO DAILY [facility] Last Admin: 01/01/17 09:59 Dose: 325 mg Carbidopa/Levodopa (Sinemet ) 1 tab PO TID [facility] Last Admin: 01/01/17 18:24 Dose: 1 tab Enoxaparin Sodium (Lovenox) 40 mg SC DAILY [facility] Last Admin: 01/01/17 09:58 Dose: 40 mg Fludrocortisone Acetate (Florinef) 0.1 mg PO ACB [facility] Last Admin: 01/02/17 06:50 Dose: 0.1 mg Lisinopril (Zestril) 5 mg PO DAILY [facility] Last Admin: 01/01/17 11:32 Dose: 5 mg Pantoprazole Sodium (Protonix Ec Tab) 40 mg PO DAILY [facility] Last Admin: 01/01/17 09:59 Dose: 40 mg Rosuvastatin Calcium (Crestor) 5 mg PO HS [facility] Last Admin: 01/01/17 21:56 Dose: 5 mg - Labs Labs: 12/30/16 11:15 PT 14.7 SECONDS (9.7-12.2) H 12/27/16 16:59 INR 1.3 12/27/16 16:59 APTT 32 SECONDS (21-34) 12/27/16 16:59 - Constitutional Appears: Well, Non-toxic, No Acute Distress - Head Exam Head Exam: ATRAUMATIC, NORMAL INSPECTION, NORMOCEPHALIC - Eye Exam Eye Exam: Normal appearance Pupil Exam: NORMAL ACCOMODATION, PERRL - ENT Exam ENT Exam: Normal External Ear Exam - Neck Exam Neck Exam: Full ROM - Respiratory Exam Respiratory Exam: Clear to Ausculation Bilateral, NORMAL BREATHING PATTERN - Cardiovascular Exam Cardiovascular Exam: REGULAR RHYTHM, +S1, +S2 - GI/Abdominal Exam GI & Abdominal Exam: Soft, Normal Bowel Sounds - Rectal Exam Rectal Exam: Deferred - Extremities Exam Extremities Exam: Normal Inspection - Back Exam Back Exam: NORMAL INSPECTION - Neurological Exam Neurological Exam: Alert, Awake, CN II-XII Intact, Oriented x3 - Psychiatric Exam Psychiatric exam: Normal Affect, Normal Mood - Skin Skin Exam: Dry, Intact, Normal Color, Warm Assessment and Plan (1) Vertigo Status: Acute (2) Elevated troponin Status: Acute (3) Hypertension Status: Chronic (4) Hyperlipidemia Status: Chronic (5) Parkinson disease, symptomatic Status: Chronic (6) Orthostatic hypotension due to Parkinson's disease Status: Acute (7) Basilar artery stenosis Status: Acute - Assessment and Plan (Free Text) Plan: Plan: Continue Flourinef, Lisinopril, and Sinemet For discharge to Subacute when bed is available.
[2017-01-02 08:46] LABS: BASO % 0.5 % (0.0-2.0); EOS # 0.1 K/uL (0.0-0.7); EOS % 1.5 % (0.0-4.0); HEMATOCRIT 42.7 % (34.0-47.0); LYMPH # 1.6 K/uL (1.0-4.3); LYMPH % 41.3 % (20.0-40.0); MEAN CELL VOLUME 102.1 fL (81.0-99.0); MEAN CORPUSCULAR HEMOGLOBIN 33.4 pg (27.0-31.0); MEAN CORPUSCULAR HGB CONC 32.7 g/dL (33.0-37.0); MEAN PLATELET VOLUME 10.1 fL (7.2-11.7); MONO # 0.4 K/uL (0.0-0.8); MONO % 9.8 % (0.0-10.0); NRBC % 0.3 % (0.0-2.0); RED CELL DISTRIBUTION WIDTH 13.9 % (11.5-14.5); WHITE BLOOD COUNT 3.9 K/uL (4.8-10.8)
[2017-01-02 09:00] LABS: CHLORIDE 102 mmol/L (98-107); SODIUM 138 mmol/L (132-148)
[2017-01-02 09:01] LABS: POTASSIUM 3.5 mmol/L (3.6-5.2)
[2017-01-02 09:02] LABS: GFR AFRICAN-AMERICAN > 60
[2017-01-02 09:03] LABS: ALKALINE PHOSPHATASE 53 U/L (38-126); ALT/SGPT 17 U/L (9-52); AST/SGOT 24 U/L (14-36); BILIRUBIN,TOTAL 0.8 mg/dL (0.2-1.3); BLOOD UREA NITROGEN 10 mg/dL (7-17); CALCIUM 8.5 mg/dl (8.6-10.4); CARBON DIOXIDE 29 mmol/L (22-30); GLUCOSE,RANDOM 83 mg/dL (65-105); TOTAL PROTEIN 6.3 g/dL (6.3-8.3)
[2017-01-02] MEDS: Pantoprazole 40 mg EC Tab PO SCH (11:05)
[2017-01-02] MEDS: Enoxaparin 40 mg Syringe SC SCH (11:23)
[2017-01-02 12:20] LABS: URINE BACTERIA MANY (<OCC); URINE BILIRUBIN NEGATIVE (NEGATIVE); URINE BLOOD 1+ (NEGATIVE); URINE COLOR Yellow (YELLOW); URINE GLUCOSE (UA) NORMAL (Normal); URINE KETONE NEGATIVE (NEGATIVE); URINE LEUKOCYTE ESTERASE NEG Leu/uL (Negative); URINE PROTEIN NEGATIVE (NEGATIVE); URINE UROBILINOGEN NORMAL mg/dL (0.2-1.0)
[2017-01-02 12:21] LABS: RBC URINE 3 /hpf (0-3); WBC URINE 3 /hpf (0-5)
[2017-01-03] MEDS: Pantoprazole 40 mg EC Tab PO SCH (10:46)
[2017-01-03] MEDS: Enoxaparin 40 mg Syringe SC SCH (10:46)
--- NOTE | 2017-01-03 16:10 | CP.PCM.PN ---
Subjective - Date & Time of Evaluation Date of Evaluation: 01/03/17 Time of Evaluation: 04:05 - Subjective Subjective: Patient is comfortable. No dizziness. BP is stable. Heart rate is stable. Laboratory- k 3.54. Hemogram is normal. Objective - Vital Signs/Intake and Output Vital Signs (last 24 hours): Temp Pulse Resp BP Pulse Ox 98.4 F 76 18 115/79 96 01/03/17 07:00 01/03/17 08:26 01/03/17 07:00 01/03/17 07:00 01/03/17 07:00 Intake and Output: 01/03/17 01/03/17 06:59 18:59 Intake Total 320 Balance 320 - Medications Medications: Current Medications Aspirin (Aspirin) 325 mg PO DAILY [facility] Last Admin: 01/03/17 10:46 Dose: 325 mg Carbidopa/Levodopa (Sinemet 10/100) 1 tab PO TID [facility] Last Admin: 01/03/17 13:50 Dose: 1 tab Enoxaparin Sodium (Lovenox) 40 mg SC DAILY [facility] Last Admin: 01/03/17 10:46 Dose: 40 mg Fludrocortisone Acetate (Florinef) 0.1 mg PO ACB [facility] Last Admin: 01/03/17 06:48 Dose: 0.1 mg Lisinopril (Zestril) 5 mg PO DAILY [facility] Last Admin: 01/03/17 10:46 Dose: 5 mg Pantoprazole Sodium (Protonix Ec Tab) 40 mg PO DAILY [facility] Last Admin: 01/03/17 10:46 Dose: 40 mg Potassium Chloride (Klor-Con 10) 10 meq PO BRK [facility] Rosuvastatin Calcium (Crestor) 5 mg PO HS [facility] Last Admin: 01/02/17 21:31 Dose: 5 mg - Labs Labs: 01/02/17 08:30 01/02/17 08:30 PT 14.7 SECONDS (9.7-12.2) H 12/27/16 16:59 INR 1.3 12/27/16 16:59 APTT 32 SECONDS (21-34) 12/27/16 16:59 - Constitutional Appears: Well, Non-toxic, No Acute Distress - Head Exam Head Exam: ATRAUMATIC, NORMAL INSPECTION, NORMOCEPHALIC - Eye Exam Eye Exam: EOMI, Normal appearance Pupil Exam: NORMAL ACCOMODATION, PERRL - ENT Exam ENT Exam: Mucous Membranes Moist - Neck Exam Neck Exam: Full ROM, Normal Inspection - Respiratory Exam Respiratory Exam: Clear to Ausculation Bilateral, NORMAL BREATHING PATTERN - Cardiovascular Exam Cardiovascular Exam: REGULAR RHYTHM - GI/Abdominal Exam GI & Abdominal Exam: Soft, Normal Bowel Sounds - Rectal Exam Rectal Exam: Deferred - Extremities Exam Extremities Exam: Full ROM, Normal Inspection - Back Exam Back Exam: Full ROM, NORMAL INSPECTION - Neurological Exam Neurological Exam: Alert, Awake, CN II-XII Intact, Oriented x3 - Psychiatric Exam Psychiatric exam: Normal Affect, Normal Mood - Skin Skin Exam: Dry, Intact, Normal Color, Warm Assessment and Plan (1) Vertigo Status: Acute (2) Elevated troponin Status: Acute (3) Hypertension Status: Chronic (4) Hyperlipidemia Status: Chronic (5) Parkinson disease, symptomatic Status: Chronic (6) Orthostatic hypotension due to Parkinson's disease Status: Acute (7) Basilar artery stenosis Status: Acute - Assessment and Plan (Free Text) Plan: Plan: Continue Flourinef, Lisinopril and Sinemet. For discharge to subacute facility in AM
[2017-01-03] MEDS ORDERED: Magnesium Hydroxide Susp 30 ml UD PO ONE (16:13)
[2017-01-03] MEDS: Potassium Chloride 10 mEq ER Tab PO SCH (17:34)
[2017-01-04 01:25] VITALS: BP 141/83
--- NOTE | 2017-01-04 06:50 | CP.PCM.DIS ---
Provider - Provider Date of Admission: 12/27/16 15:18 Attending physician: Jamia Bowser MD Time Spent in preparation of Discharge (in minutes): 60 Diagnosis - Discharge Diagnosis (1) Vertigo Status: Acute (2) Elevated troponin Status: Acute (3) Hypertension Status: Chronic (4) Hyperlipidemia Status: Chronic (5) Parkinson disease, symptomatic Status: Chronic (6) Orthostatic hypotension due to Parkinson's disease Status: Acute (7) Basilar artery stenosis Status: Acute Hospital Course - Lab Results Lab Results: Micro Results 12/27/16 22:53 Nose MRSA Culture (Admit) - Final MRSA NOT DETECTED Most Recent Lab Values WBC 3.9 K/uL (4.8-10.8) L 01/02/17 08:30 RBC 4.18 Mil/uL (3.80-5.20) 01/02/17 08:30 Hgb 14.0 g/dL (11.0-16.0) 01/02/17 08:30 Hct 42.7 % (34.0-47.0) 01/02/17 08:30 MCV 102.1 fL (81.0-99.0) H 01/02/17 08:30 MCH 33.4 pg (27.0-31.0) H 01/02/17 08:30 MCHC 32.7 g/dL (33.0-37.0) L 01/02/17 08:30 RDW 13.9 % (11.5-14.5) 01/02/17 08:30 Plt Count 158 K/uL (130-400) 01/02/17 08:30 MPV 10.1 fL (7.2-11.7) 01/02/17 08:30 Neut % (Auto) 46.9 % (50.0-75.0) L 01/02/17 08:30 Lymph % (Auto) 41.3 % (20.0-40.0) H 01/02/17 08:30 [place] % (Auto) 9.8 % (0.0-10.0) 01/02/17 08:30 Eos % (Auto) 1.5 % (0.0-4.0) 01/02/17 08:30 Baso % (Auto) 0.5 % (0.0-2.0) 01/02/17 08:30 Neut # 1.8 K/uL (1.8-7.0) 01/02/17 08:30 Lymph # 1.6 K/uL (1.0-4.3) 01/02/17 08:30 [place] # 0.4 K/uL (0.0-0.8) 01/02/17 08:30 Eos # 0.1 K/uL (0.0-0.7) 01/02/17 08:30 Baso # 0.0 K/uL (0.0-0.2) 01/02/17 08:30 PT 14.7 SECONDS (9.7-12.2) H 12/27/16 16:59 INR 1.3 12/27/16 16:59 APTT 32 SECONDS (21-34) 12/27/16 16:59 Sodium 138 mmol/L (132-148) 01/02/17 08:30 Potassium 3.5 mmol/L (3.6-5.2) L 01/02/17 08:30 Chloride 102 mmol/L (98-107) 01/02/17 08:30 Carbon Dioxide 29 mmol/L (22-30) 01/02/17 08:30 Anion Gap 10 (10-20) 01/02/17 08:30 BUN 10 mg/dL (7-17) 01/02/17 08:30 Creatinine 0.8 MG/DL (0.7-1.2) 01/02/17 08:30 Est GFR ( Amer) > 60 01/02/17 08:30 Est GFR (Non-Af Amer) > 60 01/02/17 08:30 Random Glucose 83 mg/dL (65-105) 01/02/17 08:30 Calcium 8.5 mg/dl (8.6-10.4) L 01/02/17 08:30 Total Bilirubin 0.8 mg/dL (0.2-1.3) 01/02/17 08:30 AST 24 U/L (14-36) 01/02/17 08:30 ALT 17 U/L (9-52) 01/02/17 08:30 Alkaline Phosphatase 53 U/L (38-126) 01/02/17 08:30 Total Creatine Kinase 47 U/L (30-135) 12/28/16 12:35 CK-MB (Mass) 0.41 ng/mL (0.0-3.38) 12/28/16 12:35 Troponin I 0.6470 ng/mL (0.00-0.120) H* 12/27/16 13:05 Troponin I, Quant 0.3570 ng/mL (0.00-0.120) H* 12/28/16 12:35 NT-Pro-B Natriuret Pep 114 pg/mL (0-900) 12/27/16 13:05 Total Protein 6.3 g/dL (6.3-8.3) 01/02/17 08:30 Albumin 3.1 g/dL (3.5-5.0) L 01/02/17 08:30 Globulin 3.2 gm/dL (2.2-3.9) 01/02/17 08:30 Albumin/Globulin Ratio 1.0 (1.0-2.1) 01/02/17 08:30 Urine Color Yellow (YELLOW) 01/02/17 11:25 Urine Clarity Clear (Clear) 01/02/17 11:25 Urine pH 7.0 (5.0-8.0) 01/02/17 11:25 Ur Specific [place] 1.005 (1.003-1.030) 01/02/17 11:25 Urine Protein Negative mg/dL (NEGATIVE) 01/02/17 11:25 Urine Glucose (UA) Normal mg/dL (Normal) 01/02/17 11:25 Urine Ketones Negative mg/dL (NEGATIVE) 01/02/17 11:25 Urine Blood 1+ (NEGATIVE) H 01/02/17 11:25 Urine Nitrate Negative (NEGATIVE) 01/02/17 11:25 Urine Bilirubin Negative (NEGATIVE) 01/02/17 11:25 Urine Urobilinogen Normal mg/dL (0.2-1.0) 01/02/17 11:25 Ur Leukocyte Esterase Neg Ty/uL (Negative) 01/02/17 11:25 Urine WBC (Auto) 3 /hpf (0-5) 01/02/17 11:25 Urine RBC (Auto) 3 /hpf (0-3) 01/02/17 11:25 Ur Squamous Epith Cells 3 /hpf (0-5) 01/02/17 11:25 Urine Bacteria Many (<OCC) H 01/02/17 11:25 - Hospital Course Hospital Course: Patient was admitted in to the hospital from the ER because of a history of dizziness whenever she stands up the point where she is on her knees. This happened 2 X so she came to the hospital. In the ER her troponin was elevated on 2x and she had a cardiac cath which was completely normal. Her Echo was also normal. While she was in the Hospital her BP went down to the 90's when she stood up and so she was placed on Flourinef. Patient did well with this and she will be discahrged to the subacute facility for rehab. - Date & Time of H&P Date of H&P: 01/04/17 Time of H&P: 06:45 Discharge Exam - Head Exam Head Exam: ATRAUMATIC, NORMAL INSPECTION, NORMOCEPHALIC - Eye Exam Eye Exam: EOMI, Normal appearance Pupil Exam: NORMAL ACCOMODATION, PERRL - ENT Exam ENT Exam: Mucous Membranes Moist - Respiratory Exam Respiratory Exam: Clear to PA & Lateral, NORMAL BREATHING PATTERN, UNREMARKABLE - Cardiovascular Exam Cardiovascular Exam: REGULAR RHYTHM, +S1, +S2 - GI/Abdominal Exam GI & Abdominal Exam: Normal Bowel Sounds, Unremarkable - Rectal Exam Rectal Exam: Deferred - Back Exam Back exam: FULL ROM, NORMAL INSPECTION - Neurological Exam Neurological exam: Abnormal Gait, Alert, CN II-XII Intact, Oriented x3, Reflexes Normal Additional comments: Shuffling gait. Henrik tremors of the extremities upper>lower. - Psychiatric Exam Psychiatric exam: Normal Affect, Normal Mood - Skin Skin Exam: Dry, Intact, Normal Color, Warm Discharge Plan - Follow Up Plan Condition: STABLE Disposition: REHAB FACILITY/REHAB UNIT Clinical Quality Measures - CQM - Stroke Antithrombotic Prescribed: Yes Statin prescribed: Yes - CQM - VTE Did patient receive overlap therapy during hosptialization?: No
[2017-01-04 09:00] VITALS: PULSE 76; RESP 18; TEMP 97.8; O2SAT 98
[2017-01-04] MEDS ORDERED: Pneumococcal 23-Valent Vaccine IM ONE (09:17)
[2017-01-04] MEDS: Enoxaparin 40 mg Syringe SC SCH (10:06)
[2017-01-04] MEDS: Potassium Chloride 10 mEq ER Tab PO SCH (10:06)
[2017-01-04] MEDS: Pantoprazole 40 mg EC Tab PO SCH (10:07)
== END 2017-01-04 14:05 | DRG 282 ==
LOC: C.ER 11:26 → C.9E 15:18 → C.9I 22:26 → C.6T 12-31 00:30
PROVIDERS: ADMIT Legal Medicine; ATTEND Legal Medicine
PROC: 4A023N7 Measurement of Cardiac Sampling and Pressure, Left Heart, Percutaneous Approach (ICD-10-PCS; principal; 2016-12-28)
PROC: B2151ZZ Fluoroscopy of Left Heart using Low Osmolar Contrast (ICD-10-PCS; 2016-12-28)
PROC: B2111ZZ Fluoroscopy of Multiple Coronary Arteries using Low Osmolar Contrast (ICD-10-PCS; 2016-12-28)
DX: I21.4 Non-ST elevation (NSTEMI) myocardial infarction (principal); I95.1 Orthostatic hypotension; I10 Essential (primary) hypertension; I65.1 Occlusion and stenosis of basilar artery; G20 Parkinson's disease; F02.80 Dementia in other diseases classified elsewhere, unspecified severity, without behavioral disturbance, psychotic disturbance, mood disturbance, and anxiety; E78.5 Hyperlipidemia, unspecified; Z90.49 Acquired absence of other specified parts of digestive tract

== ENCOUNTER 2019-01-08 10:04 | Observation (INO) | payer MEDICARE ==
[2019-01-08 10:15] VITALS: RESP 20
--- NOTE | 2019-01-08 11:12 | C.PDOC ---
History Of Present Illness 83 year old female with PMHx of Parkinson's disease and HLD is brought to the ED by daughter for evaluation of lower abdominal pain ongoing for several days that is worse with movement. . Reports pain radiates to left hip and is worse with movement like sitting up. Daughter also reports patient has not had a bowel movement in 5 days. Also notes increased difficulty when walking, feeling lightheaded when changing positions, and feeling unsteady and lightheaded when standing with increasing difficulty walking. . Patient has not seen PMD in 3 months and hasn't seen Neurologist since admission in 2017. . Time Seen by Provider: 01/08/19 10:27 Chief Complaint (Nursing): Abdominal Pain History Per: Patient, Family (daughter) History/Exam Limitations: no limitations Onset/Duration Of Symptoms: Days Current Symptoms Are (Timing): Still Present Location Of Pain/Discomfort: Other (lower abdomen ) Radiation Of Pain To:: Other (left hip ) Quality Of Discomfort: "Pain" Associated Symptoms: Constipation. denies: Fever, Chills, Nausea, Vomiting, Diarrhea, Chest Pain, Urinary Symptoms Exacerbating Factors: Movement Past Medical History Reviewed: Historical Data, Nursing Documentation, Vital Signs Vital Signs: Last Vital Signs Temp 98.1 F 01/08/19 10:14 Pulse 86 01/08/19 10:14 Resp 20 01/08/19 10:14 BP 134/84 01/08/19 10:14 Pulse Ox 97 01/08/19 10:14 Primary Care Provider: Jamia Bowser - Medical History PMH: HTN, Hypercholesterolemia, Parkinson's Disease Denies: Chronic Kidney Disease Surgical History: Cholecystectomy - [facility] Procedures FLUOROSCOPY OF LEFT HEART USING LOW OSMOLAR CONTRAST (12/27/16) FLUOROSCOPY OF MULT COR ART USING L OSM CONTRAST (12/27/16) MEASURE OF CARDIAC SAMPL & PRESSURE, L HEART, PERC APPROACH (12/27/16) Family History: States: No Known Family Hx - Social History Hx Alcohol Use: No Hx Substance Use: No - Immunization History Hx Tetanus Toxoid Vaccination: No Hx Influenza Vaccination: Yes Hx Pneumococcal Vaccination: Yes Review Of Systems Constitutional: Negative for: Fever, Chills Cardiovascular: Positive for: Light Headedness. Negative for: Chest Pain Respiratory: Negative for: Shortness of Breath Gastrointestinal: Positive for: Abdominal Pain, Constipation. Negative for: Nausea, Vomiting, Diarrhea Genitourinary: Negative for: Dysuria, Hematuria Musculoskeletal: Positive for: Other (left hip pain ) Neurological: Negative for: Headache Physical Exam - Physical Exam Appears: Non-toxic, No Acute Distress, Other (visible B/L hand tremors consistent with Parkinson's. ) Skin: Warm, Dry, No Rash Head: Normacephalic Eye(s): bilateral: PERRL, EOMI Oral Mucosa: Dry Neck: Supple Chest: Symmetrical Cardiovascular: Rhythm Regular Respiratory: No Rales, No Rhonchi, No Wheezing, Other (CTA B/L ) Gastrointestinal/Abdominal: Bowel Sounds (Normoactive ), Soft, No Tenderness, No Guarding, No Rebound Extremity: Tenderness (pain to left side when she tries to sit or roll over), No Pedal Edema Extremity: Bilateral: Atraumatic Pulses: Left Dorsalis Pedis: Normal, Right Dorsalis Pedis: Normal Neurological/Psych: Oriented x3, Normal Speech, Normal Cognition ED Course And Treatment - Laboratory Results Result Diagrams: 01/08/19 11:20 01/08/19 11:43 ECG: Interpreted By Me, Viewed By Me ECG Rhythm: Sinus Rhythm Interpretation Of ECG: Right superior axis deviation Rate From EC O2 Sat by Pulse Oximetry: 97 (RA) Pulse Ox Interpretation: Normal - CT Scan/US CT head Other Rad Studies (CT/US): Read By Radiologist, Radiology Report Reviewed CT/US Interpretation: IMPRESSION: No acute intracranial pathology identified. Medical Decision Making Medical Decision Making: Plan - CT head - EKG - Bloodwork - Tylenol 650mg PO - IV fluids - UA 1304 pt found to be orthostatic; message left for Dr Bowser. [address] Bowser. reports pt has had this before, takes Fluorinef. will admit to her service. Disposition Discussed With : Jamia Bowser Doctor Will See Patient In The: Hospital - Disposition Disposition: HOSPITALIZED Disposition Time: 13:39 Condition: STABLE - Clinical Impression Clinical Impression: Orthostatic hypotension, Parkinson disease, symptomatic - PA / [employer]SEM[employer] / Resident Statement MD/DO has reviewed & agrees with the documentation as recorded. - Scribe Statement The provider has reviewed the documentation as recorded by the Scribe Justina Olivera All medical record entries made by the Scribe were at my direction and personally dictated by me. I have reviewed the chart and agree that the record accurately reflects my personal performance of the history, physical exam, medical decision making, and the department course for this patient. I have also personally directed, reviewed, and agree with the discharge instructions and disposition.
[2019-01-08] MEDS ORDERED: Sodium Chloride 0.9% 1,000 ML ONE (11:14)
[2019-01-08] MEDS ORDERED: Sodium Chloride 0.9% 1,000 ML IV SCH (11:15)
[2019-01-08 11:24] LABS: BASO % 0.7 % (0.0-2.0); EOS % 0.1 % (0.0-4.0); HEMOGLOBIN 14.4 g/dL (11.0-16.0); LYMPH # 0.5 K/uL (1.0-4.3); LYMPH % 9.1 % (20.0-40.0); MEAN CORPUSCULAR HEMOGLOBIN 33.5 pg (27.0-31.0); MEAN CORPUSCULAR HGB CONC 33.9 g/dL (33.0-37.0); MEAN PLATELET VOLUME 9.3 fL (7.2-11.7); MONO # 0.6 K/uL (0.0-0.8); MONO % 9.5 % (0.0-10.0); NEUT # 4.8 K/uL (1.8-7.0); NEUT % 80.6 % (50.0-75.0); PLATELET COUNT 152 K/uL (130-400); RBC 4.31 Mil/uL (3.80-5.20); RED CELL DISTRIBUTION WIDTH 14.1 % (11.5-14.5)
[2019-01-08 11:30] LABS: WHITE BLOOD COUNT 5.9 K/uL (4.8-10.8)
[2019-01-08 11:33] LABS: SQUAMOUS EPITHIAL 5 /hpf (0-5); URINE BACTERIA MANY (<OCC); URINE BILIRUBIN NEGATIVE (NEGATIVE); URINE BLOOD 2+ (NEGATIVE); URINE CLARITY Hazy (Clear); URINE COLOR Yellow (YELLOW); URINE GLUCOSE (UA) NORMAL (Normal); URINE LEUKOCYTE ESTERASE NEG Leu/uL (Negative); URINE PROTEIN NEGATIVE (NEGATIVE)
--- NOTE | 2019-01-08 11:43 | CT ---
Date of service: 01/08/2019 PROCEDURE: CT HEAD WITHOUT CONTRAST. HISTORY: lightheaded hx parkinson COMPARISON: Noncontrast head CT performed 12/27/16 TECHNIQUE: Axial computed tomography images were obtained through the head/brain without intravenous contrast. Radiation dose: Total exam DLP = 1049.24 mGy-cm. This CT exam was performed using one or more of the following dose reduction techniques: Automated exposure control, adjustment of the mA and/or kV according to patient size, and/or use of iterative reconstruction technique. FINDINGS: HEMORRHAGE: No intracranial hemorrhage. BRAIN: No mass effect or edema. Age related senescent change. Please note that MRI with diffusion imaging is more sensitive in the detection of acute ischemic event. VENTRICLES: No hydrocephalus. CALVARIUM: Unremarkable. PARANASAL SINUSES: Unremarkable as visualized. No significant inflammatory changes. MASTOID AIR CELLS: Unremarkable as visualized. No inflammatory changes. OTHER FINDINGS: None. IMPRESSION: No acute intracranial pathology identified.
[2019-01-08 11:51] LABS: ANISOCYTOSIS SLIGHT; LYMPHOCYTE 9 % (20-40); MONOCYTE 10 % (0-10); NEUTROPHIL 81 % (50-75); PLATELET ESTIMATE NORMAL (NORMAL); TOTAL CELLS COUNTED 100
[2019-01-08 11:52] LABS: LARGE PLATELETS PRESENT
[2019-01-08 11:59] LABS: ALB/GLOB RATIO 1.1 (1.0-2.1); ALBUMIN 3.8 g/dL (3.5-5.0); ALT/SGPT 17 U/L (9-52); AST/SGOT 25 U/L (14-36); BLOOD UREA NITROGEN 16 mg/dL (7-17); CALCIUM 9.5 mg/dl (8.6-10.4); GFR NON-AFRICAN AMERICAN 60
--- NOTE | 2019-01-08 13:59 | RAD ---
Date of service: 01/08/2019 HISTORY: constipated COMPARISON: None available. TECHNIQUE: 1 view obtained. FINDINGS: Moderate constipation. Nonspecific bowel gas pattern. Air-filled bowel loops. No definite free air. Elevation of the right hemidiaphragm. Degenerative changes of the spine. IMPRESSION: Moderate constipation. Nonspecific bowel gas pattern. Air-filled bowel loops. No definite free air. Elevation of the right hemidiaphragm.
--- NOTE | 2019-01-08 18:06 | CP.PCM.HP ---
History of Present Illness - History of Present Illness History of Present Illness: Admitted this 83 years old female because of pain at the left hip after she fell from the "low bed" that she was sleeping on. Also she felt dizzy on and off. This patient is a known case of Parkinsons, and orthostatic hypotension on Flourinef but she is so non compliant with medication that she had not been taking them She is supposed to be on sinemet and she had not been taking it lately either , patient lives alone and a homemaker/visiting nurse goes to her place but apparently this had not been taken cared at all. Present on Admission - Present on Admission Any Indicators Present on Admission: No Review of Systems - Gastrointestinal Gastrointestinal: Constipation - Reproductive: Female Reproductive:Female: Menopausal - Menstruation Menstruation: Menopausal - Musculoskeletal Musculoskeletal: Abnormal Gait, Stiffness Additional comments: Presence of involuntary repetitive movements at both upper extremities. - Neurological Neurological: Dizziness, Lack of Coordination Past Patient History - Past Medical History & Family History Past Medical History?: Yes - Past Social History Smoking Status: Never Smoked - CARDIAC Hx Hypercholesterolemia: Yes Hx Hypertension: Yes - PULMONARY Hx Respiratory Disorders: No - NEUROLOGICAL Hx Parkinson's Disease: Yes - HEENT Hx HEENT Problems: No - RENAL Hx Chronic Kidney Disease: No - ENDOCRINE/METABOLIC Hx Endocrine Disorders: No - HEMATOLOGICAL/ONCOLOGICAL Hx Blood Disorders: No - INTEGUMENTARY Hx Dermatological Problems: No - MUSCULOSKELETAL/RHEUMATOLOGICAL Hx Falls: Yes - GENITOURINARY/GYNECOLOGICAL Hx Genitourinary Disorders: No - PSYCHIATRIC Hx Substance Use: No - SURGICAL HISTORY Hx Cholecystectomy: Yes - ANESTHESIA Hx Anesthesia: Yes Hx Anesthesia Reactions: No Meds Allergies/Adverse Reactions: Allergies Allergy/AdvReac Type Severity Reaction Status Date / Time strawberry Allergy RASH Verified 01/08/19 10:19 seafood Allergy RASH Uncoded 12/27/16 11:42 Physical Exam - Constitutional Appears: Well, No Acute Distress, Unkempt - Head Exam Head Exam: ATRAUMATIC, NORMAL INSPECTION, NORMOCEPHALIC - Eye Exam Eye Exam: EOMI, Normal appearance, PERRL Pupil Exam: NORMAL ACCOMODATION - ENT Exam ENT Exam: Mucous Membranes Moist, Normal External Ear Exam - Neck Exam Neck exam: Positive for: Full Rom - Respiratory Exam Respiratory Exam: Clear to Auscultation Bilateral - Cardiovascular Exam Cardiovascular Exam: REGULAR RHYTHM, +S1, +S2 - GI/Abdominal Exam GI & Abdominal Exam: Normal Bowel Sounds, Soft - Rectal Exam Rectal Exam: Deferred - Exam External exam: NORMAL EXTERNAL EXAM - Extremities Exam Extremities exam: Positive for: full ROM Additional comments: + cpgwheel phenomenen at both upper extremities. - Back Exam Back exam: FULL ROM - Neurological Exam Neurological exam: Abnormal Gait, Oriented x3 - Psychiatric Exam Psychiatric exam: Normal Affect, Normal Mood - Skin Skin Exam: Intact, Normal Color, Warm Results - Vital Signs Recent Vital Signs: Last Vital Signs Temp 97.7 F 01/08/19 16:24 Pulse 93 H 01/08/19 16:24 Resp 20 01/08/19 16:24 BP 121/81 01/08/19 16:24 Pulse Ox 97 01/08/19 16:24 - Labs Result Diagrams: 01/08/19 11:20 01/08/19 11:43 Labs: Laboratory Results - last 24 hr 01/08/19 01/08/19 01/08/19 11:20 11:20 11:43 WBC 5.9 D RBC 4.31 Hgb 14.4 Hct 42.7 MCV 99.0 D MCH 33.5 H MCHC 33.9 RDW 14.1 Plt Count 152 MPV 9.3 Neut % (Auto) 80.6 H Lymph % (Auto) 9.1 L [place] % (Auto) 9.5 Eos % (Auto) 0.1 Baso % (Auto) 0.7 Neut # (Auto) 4.8 Lymph # (Auto) 0.5 L [place] # (Auto) 0.6 Eos # (Auto) 0.0 Baso # (Auto) 0.0 Neutrophils % (Manual) 81 H Lymphocytes % (Manual) 9 L Monocytes % (Manual) 10 Platelet Estimate Normal Large Platelets Present Anisocytosis (manual) Slight Macrocytosis (manual) Slight Sodium 141 Potassium 3.7 Chloride 104 Carbon Dioxide 28 Anion Gap 13 BUN 16 Creatinine 0.9 Est GFR ( Amer) > 60 Est GFR (Non-Af Amer) 60 Random Glucose 99 Calcium 9.5 Total Bilirubin 0.9 AST 25 ALT 17 Alkaline Phosphatase 76 Total Protein 7.2 Albumin 3.8 Globulin 3.4 Albumin/Globulin Ratio 1.1 Urine Color Yellow Urine Clarity Hazy Urine pH 6.0 Ur Specific Joes 1.011 Urine Protein Negative Urine Glucose (UA) Normal Urine Ketones Negative Urine Blood 2+ H Urine Nitrate Negative Urine Bilirubin Negative Urine Urobilinogen 4.0 H Ur Leukocyte Esterase Neg Urine WBC (Auto) 12 H Urine RBC (Auto) 18 H Ur Squamous Epith Cells 5 Urine Bacteria Many H Assessment & Plan (1) Orthostatic hypotension Status: Chronic (2) Parkinson disease, symptomatic Status: Chronic - Assessment and Plan (Free Text) Assessment: Assessment: Orthostatic hypotension. Parkinsons disease. Hyperlipedemia. Hypertension. Plan: Plan: Will start on Florinef Simemet Will get MRI of brain.. Renal US because of hematuria.
--- NOTE | 2019-01-09 12:06 | CP.PCM.PN ---
Subjective - Date & Time of Evaluation Date of Evaluation: 01/09/19 Time of Evaluation: 12:03 - Subjective Subjective: Patient not complaining of dizziness today. Vital signs are stable. No tests had been done as of this time which is 12:15 PM. Renal U/S, MRI of the head ordered. X-ray of the left hip ordered not done. Urinalysis repeat ordered not done. Objective - Vital Signs/Intake and Output Vital Signs (last 24 hours): Temp Pulse Resp BP Pulse Ox 97.7 F 102 H 20 109/73 97 01/09/19 07:52 01/09/19 09:29 01/09/19 07:52 01/09/19 09:29 01/09/19 07:52 - Medications Medications: Current Medications Acetaminophen (Tylenol 325mg Tab) 650 mg PO Q6 PRN PRN Reason: Pain, moderate (4-7) Last Admin: 01/09/19 06:38 Dose: 650 mg Carbidopa/Levodopa (Sinemet 10/100) 1 tab PO TID [facility] Last Admin: 01/09/19 09:28 Dose: 1 tab Fludrocortisone Acetate (Florinef) 0.1 mg PO DAILY [facility] Last Admin: 01/09/19 09:28 Dose: 0.1 mg Lisinopril (Zestril) 5 mg PO DAILY [facility] Last Admin: 01/09/19 10:56 Dose: 5 mg Rosuvastatin Calcium (Crestor) 5 mg PO HS [facility] Last Admin: 01/08/19 22:12 Dose: 5 mg - Labs Labs: 01/08/19 11:20 01/08/19 11:43 - Constitutional Appears: Well, Unkempt - Head Exam Head Exam: ATRAUMATIC, NORMAL INSPECTION, NORMOCEPHALIC - Eye Exam Eye Exam: EOMI Pupil Exam: NORMAL ACCOMODATION, PERRL - ENT Exam ENT Exam: Mucous Membranes Moist, Normal External Ear Exam - Neck Exam Neck Exam: Full ROM - Respiratory Exam Respiratory Exam: Clear to Ausculation Bilateral, NORMAL BREATHING PATTERN - Cardiovascular Exam Cardiovascular Exam: REGULAR RHYTHM, +S1, +S2 - GI/Abdominal Exam GI & Abdominal Exam: Soft, Normal Bowel Sounds - Rectal Exam Rectal Exam: Deferred - Neurological Exam Neurological Exam: Abnormal Gait, Alert, Awake - Psychiatric Exam Psychiatric exam: Normal Affect, Normal Mood - Skin Skin Exam: Dry, Normal Color, Warm Assessment and Plan (1) Orthostatic hypotension Status: Chronic (2) Parkinson disease, symptomatic Status: Chronic - Assessment and Plan (Free Text) Assessment: Assessment: Orthostatic hypotension. Parkinsons Hypertenson. Hematuria.
--- NOTE | 2019-01-09 13:04 | US ---
Date of service: 01/09/2019 PROCEDURE: Ultrasound of the Kidneys HISTORY: hematuria COMPARISON: None available. TECHNIQUE: Sonogram of the kidneys. FINDINGS: RIGHT KIDNEY: Measures: 9.7 x 3.8 x 3.7 cm. No obstructing calculus, hydronephrosis, or renal cyst identified. LEFT KIDNEY: Measures: 10.6 x 5.0 x 4.7 cm. No obstructing calculus, hydronephrosis, or renal cyst identified. OTHER FINDINGS: None. IMPRESSION: Unremarkable renal sonogram as above.
[2019-01-09 14:39] LABS: SQUAMOUS EPITHIAL 1 /hpf (0-5); URINE BILIRUBIN NEGATIVE (NEGATIVE); URINE BLOOD 3+ (NEGATIVE); URINE CLARITY Hazy (Clear); URINE COLOR Amber (YELLOW); URINE GLUCOSE (UA) NORMAL (Normal); URINE LEUKOCYTE ESTERASE NEG Leu/uL (Negative)
[2019-01-09 14:48] LABS: URINE PROTEIN TRACE mg/dL (NEGATIVE)
--- NOTE | 2019-01-09 15:18 | CARD ---
APPROVED REPORT Date of service: 01/08/2019 EKG Measurement Heart [id number] [id number] <Conclusion> Normal sinus rhythm.check leads & repeat ekg. Right superior axis deviation Abnormal ECG
--- NOTE | 2019-01-10 03:20 | CON ---
DATE: 01/09/2019 NEUROLOGY CONSULTATION REPORT REASON FOR CONSULTATION: Parkinson's disease. HISTORY OF PRESENTING ILLNESS: The patient is an 83-year-old female who has been asked for evaluation of Parkinson's disease. The patient currently was admitted with abdominal pain and dizziness. The patient apparently has been having increasing difficulty with walking over the last 5-6 days. She is feeling unsteady when she is walking and standing. Then, she feels dizzy whenever she tries to get up and sometimes when she is walking, she feels dizzy as well. Dizziness was described as lightheaded feeling. There is no nausea, no vomiting. Denies any focal weakness in the arms or legs. She walks with the help of a cane at home; however, now she feels very shaky. REVIEW OF SYSTEMS: Denies any headaches. Positive for dizziness. Denies any chest pain or shortness of breath. Positive for abdominal pain. Denies constipation, diarrhea, cough, sputum production, focal weakness in arms or legs, hallucinations, or skin rash. PAST MEDICAL HISTORY: Includes hypertension, hypercholesterolemia, and Parkinson's disease. PAST SURGICAL HISTORY: Includes cholecystectomy. MEDICATIONS: At home included Crestor, lactulose, Florinef, Sinemet, Tylenol p.r.n., and lisinopril. ALLERGIES: NO KNOWN DRUG ALLERGIES. SOCIAL HISTORY: Denies smoking, use of alcohol or illicit drugs. FAMILY HISTORY: Reviewed and noncontributory to the case. PHYSICAL EXAMINATION: GENERAL: The patient is an elderly female, lying on bed, in no acute distress. VITAL SIGNS: Blood pressure is 130/77, heart rate is 86 per minute, breathing is at the rate of 16 per minute,and temperature is 97.7 degrees Fahrenheit. HEENT: Head is normocephalic and atraumatic. NECK: Supple. There are no carotid bruits. LUNGS: Clear. CARDIOVASCULAR SYSTEM: S1 and S2 audible. No murmurs. ABDOMEN: Soft and nontender. Bowel sounds are present. NEUROLOGIC: Mental status: The patient is awake, alert and oriented to time, place, and person. Speech is fluent. Naming and repetition are normal. Memory and cognition are intact. Cranial nerve examination: Pupils are 3 mm bilaterally and reactive to light. Visual gonzalez are full. Extraocular movements are intact. There is no facial asymmetry. Palate is upgoing bilaterally and tongue is midline. Motor examination: Tone shows positive cogwheeling, more on the right side than the left side. Positive resting tremor is noted on the right side. Power is 4/5 all over. Reflexes are 1+ and symmetrical. Plantars are downgoing bilaterally. Cerebellar examination: [id number] shows no dysmetria. Gait is deferred at the moment. The patient feels lightheaded. LABORATORY DATA: Labs reviewed shows WBC of 5.9, hemoglobin of 14.4, hematocrit 42.7, and platelets of 152. Sodium is 141, potassium 3.7, chloride 104, carbon dioxide 28, BUN 15, creatinine 0.9, and glucose of 99. The patient had a CT scan of the head done, which shows no acute intracranial pathology. IMPRESSION: Dizziness, which appears to be secondary to her underlying Parkinson's disease, which was causing her to have orthostatic hypotension. The patient was on Florinef, which was stopped recently by the patient. Maybe, that is also exacerbating her dizziness. RECOMMENDATIONS: 1. Agree with MRI of the brain without contrast. 2. The patient is to be continued on Sinemet 25/100 mg three times a day. 3. The patient is restarted on Florinef. 4. The patient is to have physical therapy for gait imbalance. 5. Because of the patient's increased gait difficulties, the patient is to be considered for subacute rehabilitation. 6. Please continue supportive care and treatment. Thank you for the opportunity to participate in the care of this patient. Yeni Penaloza MD
--- NOTE | 2019-01-10 08:19 | RAD ---
Date of service: 01/09/2019 PROCEDURE: HISTORY: left hip pain/ sp/p fall COMPARISON: 01/08/2019 KUB TECHNIQUE: AP pelvis and frog's leg view. FINDINGS: No fracture appreciated. There is relative radiolucency over each superolateral femoral head and each inferomedial femoral head. And asymmetrical radiolucency over the greater trochanter-unchanged with 01/08/2019 KUB. Limited evaluation of the sacrum given overlying confounding bowel gas. Inferior marginal osteophytes L4-5. Here intervening disc space narrowing noted. Sacroiliac pubic symphyseal joints without gross significant appearing arthrosis. Bilateral superolateral acetabular spurring with the similarly oriented bilateral hip joint space narrowing. Bilateral lateral iliac crest osseous bony excrescence. Bilateral hemipelvic phleboliths. Moderate stool retention as before. IMPRESSION: No gross fracture appreciated. Other findings as above. Comments: CT and/or MRI more sensitive regarding hip fracture assessment. Consider if clinically indicated.
[2019-01-10] MEDS ORDERED: Gadodiamide 287 mg/ml 20 ml IV ONE (08:58)
--- NOTE | 2019-01-10 10:30 | MRI ---
Date of service: 01/10/2019 PROCEDURE: MRI BRAIN WITH AND WITHOUT CONTRAST HISTORY: dizziness s/p fall COMPARISON: None available. TECHNIQUE: Multiplanar, multisequence MR images of the brain were obtained with and without intravenous contrast enhancement. 16 cc of Omniscan FINDINGS: HEMORRHAGE: None DWI: No evidence of an acute or early subacute infarction. BRAIN PARENCHYMA: No mass,mass effect or edema. No atrophy or chronic microvascular ischemic changes. ENHANCEMENT: No abnormal intracranial enhancement. VENTRICLES: Unremarkable. No hydrocephalus. CRANIUM: Unremarkable. ORBITS: Grossly unremarkable. PARANASAL SINUSES/MASTOIDS: Clear VASCULAR SYSTEM: Skull base flow voids intact. OTHER FINDINGS: None . IMPRESSION: Unremarkable pre and post contrast enhanced MRI of the brain.
--- NOTE | 2019-01-10 11:17 | CP.PCM.DIS ---
Provider - Provider Date of Admission: 01/08/19 13:37 Attending physician: Jamia Bowser MD Consults: 01/09/19 01:49 Nursing Referral for Wound Care Routine Comment: Physician Instructions: Reason For Exam: skin risk level assessment admission 01/09/19 12:10 Neurology Consult Routine Comment: Consulting Provider: Yeni Penaloza Consulting Physician: Yeni Penaloza Reason for Consult: Parkinsons Time Spent in preparation of Discharge (in minutes): 65 Diagnosis - Discharge Diagnosis (1) Orthostatic hypotension Status: Chronic (2) Parkinson disease, symptomatic Status: Chronic (3) Hyperlipidemia Status: Acute Hospital Course - Lab Results Lab Results: Micro Results 01/09/19 14:27 Urine,Catheterized Urine Culture - Final No Growth (<1,000 CFU/ML) Most Recent Lab Values WBC 5.9 K/uL (4.8-10.8) D 01/08/19 11:20 RBC 4.31 Mil/uL (3.80-5.20) 01/08/19 11:20 Hgb 14.4 g/dL (11.0-16.0) 01/08/19 11:20 Hct 42.7 % (34.0-47.0) 01/08/19 11:20 MCV 99.0 fL (81.0-99.0) D 01/08/19 11:20 MCH 33.5 pg (27.0-31.0) H 01/08/19 11:20 MCHC 33.9 g/dL (33.0-37.0) 01/08/19 11:20 RDW 14.1 % (11.5-14.5) 01/08/19 11:20 Plt Count 152 K/uL (130-400) 01/08/19 11:20 MPV 9.3 fL (7.2-11.7) 01/08/19 11:20 Neut % (Auto) 80.6 % (50.0-75.0) H 01/08/19 11:20 Lymph % (Auto) 9.1 % (20.0-40.0) L 01/08/19 11:20 Hayes % (Auto) 9.5 % (0.0-10.0) 01/08/19 11:20 Eos % (Auto) 0.1 % (0.0-4.0) 01/08/19 11:20 Baso % (Auto) 0.7 % (0.0-2.0) 01/08/19 11:20 Neut # (Auto) 4.8 K/uL (1.8-7.0) 01/08/19 11:20 Lymph # (Auto) 0.5 K/uL (1.0-4.3) L 01/08/19 11:20 Hayes # (Auto) 0.6 K/uL (0.0-0.8) 01/08/19 11:20 Eos # (Auto) 0.0 K/uL (0.0-0.7) 01/08/19 11:20 Baso # (Auto) 0.0 K/uL (0.0-0.2) 01/08/19 11:20 Neutrophils % (Manual) 81 % (50-75) H 01/08/19 11:20 Lymphocytes % (Manual) 9 % (20-40) L 01/08/19 11:20 Monocytes % (Manual) 10 % (0-10) 01/08/19 11:20 Platelet Estimate Normal (NORMAL) 01/08/19 11:20 Large Platelets Present 01/08/19 11:20 Anisocytosis (manual) Slight 01/08/19 11:20 Macrocytosis (manual) Slight 01/08/19 11:20 Sodium 141 mmol/L (132-148) 01/08/19 11:43 Potassium 3.7 mmol/L (3.6-5.2) 01/08/19 11:43 Chloride 104 mmol/L (98-107) 01/08/19 11:43 Carbon Dioxide 28 mmol/L (22-30) 01/08/19 11:43 Anion Gap 13 (10-20) 01/08/19 11:43 BUN 16 mg/dL (7-17) 01/08/19 11:43 Creatinine 0.9 mg/dL (0.7-1.2) 01/08/19 11:43 Est GFR ( Amer) > 60 01/08/19 11:43 Est GFR (Non-Af Amer) 60 01/08/19 11:43 POC Glucose (mg/dL) 114 mg/dL (65-110) H 01/09/19 11:28 Random Glucose 99 mg/dL (65-105) 01/08/19 11:43 Calcium 9.5 mg/dl (8.6-10.4) 01/08/19 11:43 Total Bilirubin 0.9 mg/dL (0.2-1.3) 01/08/19 11:43 AST 25 U/L (14-36) 01/08/19 11:43 ALT 17 U/L (9-52) 01/08/19 11:43 Alkaline Phosphatase 76 U/L (38-126) 01/08/19 11:43 Total Protein 7.2 g/dL (6.3-8.3) 01/08/19 11:43 Albumin 3.8 g/dL (3.5-5.0) 01/08/19 11:43 Globulin 3.4 gm/dL (2.2-3.9) 01/08/19 11:43 Albumin/Globulin Ratio 1.1 (1.0-2.1) 01/08/19 11:43 Urine Color Ursula (YELLOW) 01/09/19 14:27 Urine Clarity Hazy (Clear) 01/09/19 14:27 Urine pH 5.0 (5.0-8.0) 01/09/19 14:27 Ur Specific [place] 1.027 (1.003-1.030) 01/09/19 14:27 Urine Protein Trace mg/dL (NEGATIVE) 01/09/19 14:27 Urine Glucose (UA) Normal mg/dL (Normal) 01/09/19 14:27 Urine Ketones Trace mg/dL (NEGATIVE) 01/09/19 14:27 Urine Blood 3+ (NEGATIVE) H 01/09/19 14:27 Urine Nitrate Negative (NEGATIVE) 01/09/19 14:27 Urine Bilirubin Negative (NEGATIVE) 01/09/19 14:27 Urine Urobilinogen 4.0 mg/dL (0.2-1.0) H 01/09/19 14:27 Ur Leukocyte Esterase Neg Ty/uL (Negative) 01/09/19 14:27 Urine WBC (Auto) 6 /hpf (0-5) H 01/09/19 14:27 Urine RBC (Auto) 79 /hpf (0-3) H 01/09/19 14:27 Ur Squamous Epith Cells 1 /hpf (0-5) 01/09/19 14:27 Urine Bacteria Many (<OCC) H 01/08/19 11:20 Hyaline Casts 3-5 /lpf (0-2) H 01/09/19 14:27 - Hospital Course Hospital Course: Admitted this 83 years old female from home because of feeling weak and falling from the bed. patient is a known case of orthostatic hypotension and parkinsons. She ia very non-compliant in terms of taking her medications. She had been contacted to have her medications filled to no avail. In the ER and in patient her blood pressure had been on the low side but clinically she felt better. She was started on Flurinef 0.1 mgm. MRI of the head done was negative. She had micoscopic hemaruria anf her renal U/S was negative. She had culture of the urine done whch was negative. X-ray of the left hip was negative. Hemogram and chemistries were all normal. Patient will be discharged to a subacute for rehab. Discharge Exam - Head Exam Head Exam: ATRAUMATIC, NORMAL INSPECTION, NORMOCEPHALIC - Eye Exam Eye Exam: Normal appearance Pupil Exam: NORMAL ACCOMODATION, PERRL - ENT Exam ENT Exam: Mucous Membranes Moist - Neck Exam Neck exam: Full Rom - Respiratory Exam Respiratory Exam: Clear to PA & Lateral, NORMAL BREATHING PATTERN, UNREMARKABLE - Cardiovascular Exam Cardiovascular Exam: REGULAR RHYTHM, +S1, +S2 - GI/Abdominal Exam GI & Abdominal Exam: Normal Bowel Sounds - Rectal Exam Rectal Exam: Deferred - Extremities Exam Additional comments: involuntary movements of hands. - Back Exam Back exam: NORMAL INSPECTION - Neurological Exam Neurological exam: Abnormal Gait, Alert, Oriented x3 - Psychiatric Exam Psychiatric exam: Normal Affect, Normal Mood - Skin Skin Exam: Intact, Normal Color, Warm Discharge Plan - Follow Up Plan Condition: GOOD Disposition: HOME/ ROUTINE Instructions: Low Cholesterol, Saturated Fat, and Trans Fat Diet , Orthostatic Hypotension (DC), Parkinson Disease (DC) Referrals: Yeni Penaloza MD [Staff Provider] - Jamia Bowser MD [Staff Provider] - Clinical Quality Measures - CQM - Stroke Statin prescribed: Yes - CQM - VTE Did patient receive overlap therapy during hosptialization?: No
--- NOTE | 2019-01-10 14:50 | CP.PCM.CON ---
History of Present Illness - History of Present Illness History of Present Illness: 83 years old female hospitalized because of severe dizziness. She had fallen out of her bed a week ago. She is known to have a Parkinson's disease on Sinemet, an orthostatic hypotension on Florinef, a hypertension and a hypercholesterolemia. MRI of the head was unremarkable. She was ready to be discharged to [facility], when her telemetry showed questionable atrial flutter with MVR. The patient denies any chest pain, SOB, palpitation, nausea, vomiting. A stat ECG also was questionable for an atrial flutter, with no acute ST-T wave change. But, on the business systems administrator, when the patient is not shaking, her cardiac rhythm was clearly an RSR. The patient can be discharged to [facility] today. Review of Systems - Constitutional Constitutional: Frequent Falls - Cardiovascular Cardiovascular: Lightheadedness Past Patient History - Infectious Disease Hx of Infectious Diseases: None - Tetanus Immunizations Tetanus Immunization: Unknown - Past Medical History & Family History Past Medical History?: Yes - Past Social History Smoking Status: Never Smoked Alcohol: None Drugs: Denies Home Situation {Lives}: Alone Domestic Violence: Negative - CARDIAC Hx Hypercholesterolemia: Yes Hx Hypertension: Yes - PULMONARY Hx Respiratory Disorders: No - NEUROLOGICAL Hx Dizziness: Yes Hx Parkinson's Disease: Yes - HEENT Hx HEENT Problems: No - RENAL Hx Chronic Kidney Disease: No - ENDOCRINE/METABOLIC Hx Endocrine Disorders: No - HEMATOLOGICAL/ONCOLOGICAL Hx Blood Disorders: No - INTEGUMENTARY Hx Dermatological Problems: No - MUSCULOSKELETAL/RHEUMATOLOGICAL Hx Falls: Yes - GENITOURINARY/GYNECOLOGICAL Hx Genitourinary Disorders: No - PSYCHIATRIC Hx Substance Use: No - SURGICAL HISTORY Hx Cholecystectomy: Yes - ANESTHESIA Hx Anesthesia: Yes Hx Anesthesia Reactions: No Meds Home Medications: Home Medication List Medication Instructions Recorded Confirmed Type Acetaminophen [Tylenol 325mg tab] 650 mg PO Q6 PRN tab 01/10/19 Rx Carbidopa/Levodopa 10/100 [Sinemet 1 tab PO TID tab 01/10/19 Rx 10/] Fludrocortisone [Florinef] 0.1 mg PO DAILY tab 01/10/19 Rx Lactulose [Enulose] 20 gm PO HS udc 01/10/19 Rx Lisinopril [Zestril] 5 mg PO DAILY tab 01/10/19 Rx Rosuvastatin Calcium [Crestor] 5 mg PO HS tab 01/10/19 Rx Allergies/Adverse Reactions: Allergies Allergy/AdvReac Type Severity Reaction Status Date / Time strawberry Allergy RASH Verified 01/08/19 10:19 seafood Allergy RASH Uncoded 12/27/16 11:42 - Medications Medications: Current Medications Acetaminophen (Tylenol 325mg Tab) 650 mg PO Q6 PRN PRN Reason: Pain, moderate (4-7) Last Admin: 01/10/19 13:21 Dose: 650 mg Carbidopa/Levodopa (Sinemet 10/100) 1 tab PO TID [facility] Last Admin: 01/10/19 13:22 Dose: 1 tab Fludrocortisone Acetate (Florinef) 0.1 mg PO DAILY [facility] Last Admin: 01/10/19 10:09 Dose: 0.1 mg Lactulose (Enulose) 20 gm PO [facility] Last Admin: 01/09/19 21:35 Dose: 20 gm Lisinopril (Zestril) 5 mg PO DAILY [facility] Last Admin: 01/10/19 10:09 Dose: Not Given Rosuvastatin Calcium (Crestor) 5 mg PO [facility] Last Admin: 01/09/19 21:35 Dose: 5 mg Physical Exam - Constitutional Appears: Well, No Acute Distress, Chronically Ill - Head Exam Head Exam: NORMAL INSPECTION, NORMOCEPHALIC - Eye Exam Eye Exam: Normal appearance Pupil Exam: NORMAL ACCOMODATION - ENT Exam ENT Exam: Normal Exam - Neck Exam Neck exam: Positive for: Normal Inspection - Respiratory Exam Respiratory Exam: Clear to Auscultation Bilateral, NORMAL BREATHING PATTERN - Cardiovascular Exam Cardiovascular Exam: REGULAR RHYTHM - GI/Abdominal Exam GI & Abdominal Exam: Normal Bowel Sounds, Soft - Rectal Exam Rectal Exam: Deferred - Extremities Exam Extremities exam: Positive for: normal inspection Additional comments: Tremors of both hands. - Back Exam Back exam: NORMAL INSPECTION - Neurological Exam Neurological exam: Alert, CN II-XII Intact, Oriented x3 - Psychiatric Exam Psychiatric exam: Anxious - Skin Skin Exam: Dry, Intact, Normal Color Results - Vital Signs Recent Vital Signs: Last Vital Signs Temp 98.1 F 01/10/19 07:00 Pulse 95 H 01/10/19 10:09 Resp 20 01/10/19 07:00 BP 95/63 L 01/10/19 10:09 Pulse Ox 98 01/10/19 07:00 - Labs Result Diagrams: 01/08/19 11:20 01/08/19 11:43 Labs: Laboratory Results - last 24 hr 01/09/19 14:27 Urine Color Ursula Urine Clarity Hazy Urine pH 5.0 Ur Specific [place] 1.027 Urine Protein Trace Urine Glucose (UA) Normal Urine Ketones Trace Urine Blood 3+ H Urine Nitrate Negative Urine Bilirubin Negative Urine Urobilinogen 4.0 H Ur Leukocyte Esterase Neg Urine WBC (Auto) 6 H Urine RBC (Auto) 79 H Ur Squamous Epith Cells 1 Hyaline Casts 3-5 H Assessment & Plan (1) Orthostatic hypotension Assessment and Plan: To continue Sinemat as Dr Sarika Penaloza. Status: Chronic (2) Orthostatic hypotension due to Parkinson's disease Assessment and Plan: To continue Florinef. Status: Acute
[2019-01-10 15:53] VITALS: BP 137/84; PULSE 73; TEMP 97.5; O2SAT 99
--- NOTE | 2019-01-12 00:04 | CARD ---
APPROVED REPORT Date of service: 01/10/2019 EKG Measurement Heart [id number] <Conclusion> Atrial flutter with variable AV block Moderate voltage criteria for LVH, may be normal variant Abnormal ECG
== END 2019-01-10 17:04 ==
LOC: C.ER 10:04 → C.9E 13:37 → C.5S 14:12
PROVIDERS: ADMIT Legal Medicine; ATTEND Legal Medicine
DX: G20 Parkinson's disease (principal); I95.1 Orthostatic hypotension; E78.00 Pure hypercholesterolemia, unspecified; I10 Essential (primary) hypertension; R31.9 Hematuria, unspecified; Z91.14 Patient's other noncompliance with medication regimen
CPT/HCPCS: 36415; 70450; 70552; 73502; 74018; 76770; 80053; 81001; 82948; 85025; 87086; 93005; 97116; 97162; 97166; 97530; 99285; G0378; G8978; G8979; G8987; G8988; J7030